=== PATIENT | female | born 1955 | race Caucasian/White ===

== ENCOUNTER → 2018-02-02 | Outpatient (CLI) | payer BC | END | disposition home or self-care (01) | LOC: LABPAT 12:44 | PROVIDERS: ATTEND Orthopaedic Surgery | DX: Z01.812 Encounter for preprocedural laboratory examination (principal); M16.12 Unilateral primary osteoarthritis, left hip | CPT/HCPCS: 87070 ==

== ENCOUNTER 2018-02-09 06:15 | Inpatient (IN) | payer BC ==
[2018-01-29 15:33] VITALS: BMI 20.7
--- NOTE | 2018-02-08 09:04 | HP ---
HISTORY AND PHYSICAL CHIEF COMPLAINT: Left hip pain. HISTORY OF PRESENT ILLNESS: The patient is a 62-year-old retired female who presents with progressive left hip pain worsening over the past year. She notes worsening pain with weightbearing activities. She has been limping. She is having a difficult time because of this. She has been taking medications with partial relief. PAST MEDICAL HISTORY: Significant for hypertension, arthritis. PAST SURGICAL HISTORY: Significant for hysterectomy and cholecystectomy. CURRENT MEDICATIONS: [place] and metoprolol. ALLERGIES: She denies drug allergies. FAMILY HISTORY: Significant for diabetes and cancer. SOCIAL HISTORY: Significant for social alcohol use. REVIEW OF SYSTEMS: Sixteen-point review of systems otherwise reviewed and is noncontributory. PHYSICAL EXAMINATION: On examination, the patient is approximately 5 feet 5 inches, 127 pounds of mesomorphic habitus. HEENT exam is nonfocal. Neck is supple. Passive motion of the left hip, flexion 90 degrees, extension full, internal rotation with the hip flexed 5 degrees with pain, external rotation 60 degrees. Clinically, she has 1 cm shortening of the left lower extremity compared to the right. She walks with a mild Trendelenburg gait. Her distal neurovascular exam appears intact in the left lower extremity. X-rays to include AP and lateral views of the left hip obtained in the office show severe left hip osteoarthrosis with coxa valga deformity. IMPRESSION: 1. Left hip severe osteoarthrosis. 2. Hypertension. RECOMMENDATIONS: I talked to the patient at length regarding her condition and treatment options. At this point, she is quite symptomatic because of pain related to her osteoarthrosis. After a thorough discussion, she opts to proceed with surgery. We will plan to proceed with left total hip arthroplasty. Risks and benefits were discussed at length in layman's terms. We will institute DVT prophylaxis postoperatively. The patient underwent preoperative medical evaluation by Dr. Can. MMODL / IJN: [id number] /
[~2018-02-09 06:15] MED LIST: ACETAMINOPHEN TAB 500 MG TAB PO ONE; DEXAMETHASONE SOD PHOSPHATE 10 MG/ML 1 ML VIAL IV ONE; MELOXICAM 7.5 MG TAB PO ONE; MIDAZOLAM 2 MG/2 ML VIAL IV PRN; ONDANSETRON 4 MG/2 ML VIAL IVP ONE; SCOPOLAMINE 1.5MG/72HR PATCH TRANSDERM ONE; TRANEXAMIC ACID 1,000 MG in SODIUM CHLORIDE 0.9% 50 ML IVPB ONE; ceFAZolin IN SWFI 2 GM/20 ML SYRINGE IVP ONE; fentaNYL (PF) 50 MCG/ML 2 ML AMP IV PRN
[2018-02-09 06:43] VITALS: RESP 16
[2018-02-09] MEDS ORDERED: LIDOCAINE 1% 20 ML VIAL (10MG/ML) FOR IV START INTRADERMA ONE (06:50)
[2018-02-09] MEDS: LACTATED RINGERS 1,000 ML IV SCH ×2 (06:59→12:18)
[2018-02-09] MEDS ORDERED: TRANEXAMIC ACID 1,000 MG/10 ML VIAL ONE (08:47)
[2018-02-09] MEDS ORDERED: SODIUM CHLORIDE 0.9% 100 ML BAG ONE (08:47)
[2018-02-09] MEDS ORDERED: fentaNYL (PF) 50 MCG/ML 2 ML AMP ONE (08:47)
[2018-02-09] MEDS ORDERED: LACTATED RINGERS 1,000 ML BAG IV ONE (08:47)
[2018-02-09] MEDS ORDERED: LIDOCAINE 1% INJ 10MG/ML (20 ML MDV) ONE (08:47)
[2018-02-09] MEDS ORDERED: PROPOFOL 10 MG/ML 20 ML VIAL IV ONE (08:47)
[2018-02-09] MEDS ORDERED: PHENYLEPHRINE-0.9% NACL SYG 1 MG/10 ML SYRINGE ONE (08:47)
[2018-02-09] MEDS ORDERED: HEPARIN SODIUM,PORCINE 10,000 UNIT/ML 1 ML VIAL ONE (08:47)
[2018-02-09] MEDS ORDERED: MIDAZOLAM 2 MG/2 ML VIAL ONE (08:47)
[2018-02-09] MEDS ORDERED: CLINDAMYCIN 1,800 MG in SODIUM CHLORIDE 0.9% IRRIGATIO 3,000 ML IRRIGATION ONE (09:24)
[2018-02-09] MEDS ORDERED: LACTATED RINGERS 1,000 ML IV ONE (10:10)
[2018-02-09] MEDS ORDERED: traMADol 50 MG TAB PO PRN (10:36)
[2018-02-09] MEDS ORDERED: MAGNESIUM HYDROXIDE 2,400 MG/10 ML CUP PO PRN (10:36)
[2018-02-09] MEDS ORDERED: MORPHINE SULFATE 4 MG/ML SYRINGE IVP PRN ×2 (10:36)
[2018-02-09] MEDS ORDERED: HYDROcodone/APAP 5-325MG 1 EACH TAB PO PRN (10:36)
[2018-02-09] MEDS ORDERED: NALOXONE 0.4 MG/ML 1 ML VIAL IV PRN (10:36)
[2018-02-09] MEDS ORDERED: ONDANSETRON 4 MG/2 ML VIAL IVP PRN (10:36)
[2018-02-09] MEDS ORDERED: MORPHINE SULFATE 4 MG/ML SYRINGE IV PRN (10:36)
--- NOTE | 2018-02-09 11:07 | P.OP ---
Date of Procedure: 02/09/18 Preoperative Diagnosis: Left hip severe osteoarthrosis Postoperative Diagnosis: Same Procedure(s) Performed: Left total hip xriwibypyijn-qkqqt-itk-anterior approach Implants: Depuy Corail size 11 collared press-fit femoral stem, 32 mm +1 ceramic femoral head, neutral polyethylene liner, 52 mm acetabular shell. Anesthesia: spinal Surgeon: Manuel Gillis Furniture Mover Helper #1: Gallito Osorio Estimated Blood Loss (ml): 150 Pathology: other (Femoral head) Condition: stable Disposition: PACU Indications for Procedure: The patient's a 62-year-old female who presents with progressive left hip pain secondary to osteoporosis despite extensive conservative measures. A discussion of the risks and benefits of operative intervention versus continued conservative measures was made with the patient. She opted to proceed with surgery. Operative risks to include infection, neurovascular injury, development of blood clots, possible component loosening, dislocation, leg length discrepancy and possible need for subsequent procedures was discussed. Informed consent was obtained. Operative Findings: As below Description of Procedure: The patient was brought to the operating room, and after induction of spinal anesthesia was placed supine on the [place] table. The left lower extremity was prepped and draped in a normal fashion. Preoperative templating was previously performed to estimate component positioning and sizes. Fluoroscopy was used to check that the pelvis was level. A 12 cm incision was then made starting 3 finger breaths posterior and distal to the ASIS. The skin and subcutaneous tissues were divided sharply. Electrocautery was used for hemostasis. The fascia was opened anterior to the posterior perforators. The interval between the tensor fascia avtar and the sartorius was bluntly developed. The posterior fascia was opened with electrocautery. The lateral circumflex vessels were identified and cauterized prior to sectioning. Retractors placed along the superior and inferior femoral neck along with the anterior acetabulum. The rectus femoris was elevated off the anterior capsule. The a wide capsulotomy was performed. The neck cut was made a proximal 1 cm above the level of the lesser trochanter at a 45 the shaft with a sagittal saw. The head was then extracted. Attention was then paid towards preparing the acetabular. Anterior and posterior retractors were placed. The remaining capsular labral tissue was debrided sharply clearly defining the acetabular margins. I began reaming with a 45 mm reamer taking care to initially medialize and then reaming at 45 of abduction and 20 of anteversion. Sequential reaming is performed up to 51 mm down to a bleeding bony surface. A 52 mm trial acetabular shell was inserted again at 45 of abduction and 20 of anteversion. This was fully seated. This was verified with fluoroscopy. There was good rim fit and stability. The trial acetabular shell was removed and the final 52 mm acetabular shell was inserted in the same orientation. Again this was fully seated. There was good rim fit and stability. I did place a superior posterior screw for additional fixation. This was 6.5 mm x 30 mm. Good purchase was obtained. A neutral polyethylene liner was gently impacted. Care was taken to avoid any soft tissue interposition. Pulsatile lavage was utilized. Attention was then paid towards preparing the proximal femur. The hip was externally rotated to 130 and then fully extended and abducted. Appropriate retractors were placed. The saddle region was cleared of soft tissue. The residual lateral neck was removed. A box chisel was used to open the metaphyseal region. A canal finder was used to find the femoral canal. Sequential broaching was performed up to a size 11 broach with the broach or lateral to the posterior cortex. There is good rotational stability. A calcar mill was used to fashion the medial calcar. A standard neck along with a 32 mm +1 trial head. The hip was gently reduced. Fluoroscopy was used to check the leg length latter-day. This was done utilizing an overlay technique. I felt I had restored the leg lengths sufficiently. The hip was externally rotated to 80 and extended 50. This was stable. I felt there was adequate latter-day of soft tissue tension. The hip was gently dislocated and the trial components removed. The size 11 collared femoral stem was inserted parallel to the posterior cortex and was fully seated. Again there was good rotational stability. A 32 mm +1 ceramic femoral head was gently impacted. The hip was gently reduced. Again it was taken to 80 of external rotation and 50 of extension with good stability. Pulsatile lavage was again utilized. The fascia was closed with running 0 Vicryl suture. The subcutaneous tissues reapproximated interrupted 2-0 Vicryl sutures. The skin was reprepped with 3-0 subcuticular strata fix suture. Skin tape and adhesive was applied. The patient was then awoken from sedation and transferred to recovery room in good condition. Blood loss was estimated at 150 mL. No complications were incurred. 2 doses of IV TXA were given. Sponge and needle counts were correct at the end the case.
--- NOTE | 2018-02-09 11:14 | XR ---
EXAMINATION TYPE: XR Hip Limited 1 view LT, FL guidance operating room DATE OF EXAM: 02/09/2018 COMPARISON: NONE HISTORY: 62 year-old female left hip arthroplasty FINDINGS: Single fluoroscopic intraoperative images showing left total arthroplasty. FLUOROSCOPY Fluoroscopy time of 49 seconds was used during left hip replacement. 1 image/s document/s the proced ure. IMPRESSION: Intraoperative fluoroscopy during left hip total arthroplasty as above.
--- NOTE | 2018-02-09 11:16 | XR ---
EXAMINATION TYPE: XR Hip Limited LT DATE OF EXAM: 02/09/2018 COMPARISON: NONE HISTORY: 62-year-old female status post left total hip arthroplasty, postoperative assessment TECHNIQUE: Single portable AP view FINDINGS: Single view shows left hip total arthroplasty in grossly anatomic alignment. Both acetabular cup and femoral stem components appear well-seated without periprosthetic fracture. Soft tissue air related t o recent operation. IMPRESSION: Uncomplicated postoperative appearance left total hip arthroplasty.
[2018-02-09] MEDS: HYDROcodone/APAP 5-325MG 1 EACH TAB PO PRN ×3 (12:20→19:39)
--- NOTE | 2018-02-09 15:12 | P.CONS ---
History of Present Illness - Reason for Consult Consult date: 02/09/18 Management of hypertension Requesting physician: Manuel Gillis - Chief Complaint Consult medical management of hypertension - History of Present Illness The patient is a 62-year-old female with a past medical history of hypertension that is admitted to the orthopedic service under Dr. Gillis And is currently postop day #0 status post having a left total hip arthroplasty anterior approach secondary to history of severe left hip osteoarthrosis. The patient is currently doing fine she reports recently returned from walking with a walker Under the guidance of physical therapy, she has no complaints. She denies any chest pain or shortness of breath, she denies any nausea or abdominal pain. The patient is requesting to have her Weiss catheter removed. Review of Systems All other 12 point review of systems negative except per HPI Past Medical History Past Medical History: Hypertension, Osteoarthritis (OA) History of Any Multi-Drug Resistant Organisms: None Reported Past Surgical History: Cholecystectomy, Hysterectomy Additional Past Surgical History / Comment(s): ANTERIOR TOTAL LEFT HIP ARTHROPLASTY 02-09-2018 Past Anesthesia/Blood Transfusion Reactions: No Reported Reaction Past Psychological History: No Psychological Hx Reported Smoking Status: Never smoker Past Alcohol Use History: Occasional Past Drug Use History: None Reported - Past Family History Sister(s) Family Medical History: Cancer Additional Family Medical History / Comment(s): BREAST Medications and Allergies Home Medications Medication Instructions Recorded Confirmed Type Metoprolol Succinate (ER) [Toprol 100 mg PO QAM 02/09/18 02/09/18 History Xl] Rivaroxaban [Xarelto] 10 mg PO DAILY #28 tab 02/09/18 Rx Allergies Allergy/AdvReac Type Severity Reaction Status Date / Time meperidine [From Demerol] Allergy Itching/DELVIS Verified 02/09/18 11:52 H Penicillins Allergy Itching/DELVIS Verified 02/09/18 11:52 H Physical Exam Vitals: Vital Signs Temp Pulse Resp BP Pulse Ox 02/09/18 11:13 70 16 131/78 97 02/09/18 11:00 75 16 126/75 97 02/09/18 10:54 97.8 F 78 16 140/83 98 02/09/18 06:42 97.8 F 80 16 159/90 99 Intake and Output 02/09/18 02/09/18 02/09/18 06:59 14:59 22:59 Intake Total 200 2651 Output Total 200 Balance 200 2451 Intake: IV 200 1001 Intake, IV Titration 150 Amount Lactated Ringers 1,000 ml 150 @ 50 mls/hr IV .Q20H [facility] Rx#:[id number] Oral 1500 Output: Urine 50 Estimated Blood Loss 150 Other: Voiding Method Indwelling Catheter Weight 56.699 kg Results CBC & Chem 7: 02/09/18 06:50 Assessment and Plan (1) Essential hypertension Current Visit: Yes Status: Acute Code(s): I10 - ESSENTIAL (PRIMARY) HYPERTENSION SNOMED Code(s): 97865469 (2) Osteoarthritis of left hip Current Visit: Yes Status: Acute Code(s): M16.12 - UNILATERAL PRIMARY OSTEOARTHRITIS, LEFT HIP SNOMED Code(s): 162728710953635 (3) S/P total hip arthroplasty Current Visit: Yes Status: Acute Code(s): Z96.649 - PRESENCE OF UNSPECIFIED ARTIFICIAL HIP JOINT SNOMED Code(s): 667535508836 Plan: The patient is doing well postop after having a left hip arthroplasty done due to severe left hip osteoarthrosis. Deferred to primary team regarding pain management, patient is already working well with physical therapy, we'll place an order to discontinue her Weiss catheter. We'll resume her Home temporarily and hypertensive therapy. The patient is continued on DVT prophylaxis on Xarelto by primary team. We'll continue to follow her clinical course
[2018-02-09] MEDS: ceFAZolin IN SWFI 2 GM/20 ML SYRINGE IVP SCH (19:39)
[2018-02-09] MEDS ORDERED: SENNOSIDES-DOCUSATE SODIUM 1 EACH TAB PO SCH (21:00)
[2018-02-10] MEDS ORDERED: ZOLPIDEM 5 MG TAB PO PRN (01:52)
[2018-02-10] MEDS: ceFAZolin IN SWFI 2 GM/20 ML SYRINGE IVP SCH (02:25)
[2018-02-10 07:53] LABS: Basophils % (A) 0 %; Eosinophils # (A) 0.1 k/uL (0-0.7); Eosinophils % (A) 1 %; HCT 33.3 % (34.0-46.0); Lymphocytes # (A) 1.4 k/uL (1.0-4.8); Lymphocytes % (A) 34 %; MCH 31.3 pg (25.0-35.0); MCV 95.1 fL (80.0-100.0); Monocytes # (A) 0.3 k/uL (0-1.0); Monocytes % (A) 8 %; Neutrophils # (A) 2.2 k/uL (1.3-7.7); Neutrophils % (A) 53 %; Platelet Count 220 k/uL (150-450); RDW 13.3 % (11.5-15.5); WBC 4.2 k/uL (3.8-10.6)
[2018-02-10 08:29] VITALS: BP 122/83; PULSE 74; TEMP 98.8
[2018-02-10] MEDS ORDERED: METOPROLOL SUCCINATE (ER) 100 MG TAB.ER.24H PO SCH (09:00)
[2018-02-10] MEDS ORDERED: RIVAROXABAN 10 MG TAB PO SCH (09:00)
[2018-02-10] MEDS: HYDROcodone/APAP 5-325MG 1 EACH TAB PO PRN (09:07)
--- NOTE | 2018-02-10 10:56 | P.PN ---
Subjective Progress Note Date: 02/10/18 Discharge of the patient was she was ambulatory in the halls with a walker doing very well with physical therapy, reports that she feels great has no complaints reports her pain is well-controlled. Had a good night of sleep, has avoided since having her Weiss removed Objective - Vital Signs Vital signs: Vital Signs Temp 98.8 F 02/10/18 08:07 Pulse 74 02/10/18 08:07 Resp 16 02/10/18 08:07 BP 122/83 02/10/18 08:07 Pulse Ox 99 02/10/18 08:07 Intake & Output 02/09/18 02/10/18 02/10/18 18:59 06:59 18:59 Intake Total 2651 1400 Output Total 1100 Balance 1551 1400 Weight 56.699 kg Intake: IV 1001 Intake, IV Titration 150 800 Amount Lactated Ringers 1,000 ml 150 800 @ 50 mls/hr IV .Q20H [facility] Rx#:[id number] Oral 1500 Other 600 Output: Urine 950 Uretheral (Weiss) 900 Estimated Blood Loss 150 Other: Voiding Method Indwelling Catheter # Voids 3 - Exam Constitutional: No acute distress, conversant, pleasant Eyes: Anicteric sclerae, moist conjunctiva, no lid-lag, PERRLA ENMT: NC/AT,Oropharynx clear, no erythema, exudates Neck:Supple, FROM, no masses, or JVD, No carotid bruits; No thyromegaly Lungs: Clear to auscultation, Clear to percussion, Normal respiratory effort, no accessory muscle use Cardiovascular: Heart regular in rate and rhythm, No murmurs, gallops, or rubs no peripheral edema Abdominal: Soft Nontender, nom distended, no guarding, no rebound or rigidity, Normoactive bowel sounds No hepatomegaly, No splenomegaly, No palpable mass No abdominal wall hernia noted Skin: Normal temperature, tone, texture, turgor, No induration No subcutaneous nodules, No rash, lesions, No ulcers Extremities:No digital cyanosis No clubbing, Pedal pulses intact and symmetrical Radial pulses intact and symmetrical Normal gait and station, No calf tenderness Psychiatric: Alert and oriented to person, place and time, Appropriate affect Intact judgement Neuro: Muscles Strength 5/5 in all 4 extremities, Sensation to light touch grossly present throughout, Cranial nerves II-XII grossly intact. No focal sensory deficits - Labs CBC & Chem 7: 02/10/18 07:08 02/09/18 06:50 Labs: Abnormal Lab Results - Last 24 Hours (Table) 02/10/18 Range/Units 07:08 RBC 3.50 L (3.80-5.40) m/uL Hgb 11.0 L D (11.4-16.0) gm/dL Hct 33.3 L (34.0-46.0) % Assessment and Plan (1) Essential hypertension Narrative/Plan: * Stable controlled on current regimen Current Visit: Yes Status: Acute Code(s): I10 - ESSENTIAL (PRIMARY) HYPERTENSION SNOMED Code(s): 61442884 (2) Osteoarthritis of left hip Current Visit: Yes Status: Acute Code(s): M16.12 - UNILATERAL PRIMARY OSTEOARTHRITIS, LEFT HIP SNOMED Code(s): 878223773915149 (3) S/P total hip arthroplasty Narrative/Plan: * Defer to primary team regarding pain management patient is doing great today * Agree with continuing Xarelto for DVT prophylaxis Current Visit: Yes Status: Acute Code(s): Z96.649 - PRESENCE OF UNSPECIFIED ARTIFICIAL HIP JOINT SNOMED Code(s): 402078290307 Plan: Patient is stable for discharge today we'll sign off, for further questions or concerns please do not hesitate to contact the sound team
--- NOTE | 2018-02-10 12:05 | P.PN ---
Subjective Progress Note Date: 02/10/18 Principal diagnosis: Status post left total hip arthroplasty Patient seen today resting in her hospital bed, she appears comfortable. She's ambulate well therapy. She is urinating on her own. She denies any headaches, lightheadedness, chest pain or shortness of breath. Objective - Vital Signs Vital signs: Vital Signs Temp 98.8 F 02/10/18 08:07 Pulse 74 02/10/18 08:07 Resp 16 02/10/18 08:07 BP 122/83 02/10/18 08:07 Pulse Ox 99 02/10/18 08:07 Intake & Output 02/09/18 02/10/18 02/10/18 18:59 06:59 18:59 Intake Total 2651 1400 Output Total 1100 Balance 1551 1400 Weight 56.699 kg Intake: IV 1001 Intake, IV Titration 150 800 Amount Lactated Ringers 1,000 ml 150 800 @ 50 mls/hr IV .Q20H [facility] Rx#:[id number] Oral 1500 Other 600 Output: Urine 950 Uretheral (Weiss) 900 Estimated Blood Loss 150 Other: Voiding Method Indwelling Catheter Toilet # Voids 3 - Exam Left lower extremity: Incision is clean, dry, and intact. The prineo tape is in good condition. There is minimal soft tissue swelling and ecchymosis surrounding the medial and lateral aspects of the incision. Calf is soft, no tenderness with palpation. Plantar flexion, dorsiflexion, EHL, FHL are intact. Sensory exam to light touch throughout the extremity is intact, dorsal pedis pulses 2+. - Labs CBC & Chem 7: 02/10/18 07:08 02/09/18 06:50 Labs: Abnormal Lab Results - Last 24 Hours (Table) 02/10/18 Range/Units 07:08 RBC 3.50 L (3.80-5.40) m/uL Hgb 11.0 L D (11.4-16.0) gm/dL Hct 33.3 L (34.0-46.0) % Assessment and Plan Plan: Assessment: 1. Postop day #1 status post left total hip arthroplasty Plan: Pain control, we'll discharge home on oral medication GI and DVT prophylaxis, will utilize Xarelto 10 mg daily for 28 days Wound care instructions discussed Icing and elevating techniques were discussed Medical recommendations Discharge planning: Patient will be discharged home today Time with Patient: Less than 30
--- NOTE | 2018-02-10 12:07 | P.DS ---
Providers Date of admission: 02/09/18 06:15 Expected date of discharge: 02/10/18 Attending physician: Manuel Gillis Consults: 02/09/18 10:40 Consult Physician Routine Consulting Provider: Carmen Rico Consult Reason/Comments: Medical Management Do you want consulting provider notified?: Yes Primary care physician: Carmen Rico [facility] Course: Date of admission: 02/09/2018 Date of discharge: 02/10/2018 Admission diagnosis: Status post left total hip arthroplasty Discharge diagnosis: Same Attending physician: Dr. Gillis Surgical procedures: Left total hip arthroplasty Brief history: Patient is a 62-year-old female with a history of with progressive primary left hip osteoarthritis. At this point patient has failed conservative treatment measures and has opted to proceed with a elective left total hip arthroplasty. Hospital course: Details of patient's surgery can be found in operative report. Patient tolerated the procedure well and was subsequently transported to orthopedic floor. Patient's orthopeidc and medical care was provided daily. Patient had daily laboratory tests performed for evaluation of overall blood counts. Patient had daily physical therapy to include strengthening range of motion as well as education with walker ambulation. Patient was treated with Xarelto for their postoperative DVT prophylaxis during their inpatient stay. Patient was noted to have a relatively uneventful postoperative course. Patient reported satisfactory pain control with oral pain medications by postoperative day 0. Patient showed satisfactory progress with physical therapy. Patient moved steadily through the program and had no difficulty meeting the goals by postoperative day 1. Given patient's otherwise satisfactory course and having met physical therapy goals, plan is to discharge patient home on postoperative day 1. Discharge condition/disposition: Patient will be discharged home in stable condition. Discharge medications: Instructions are given on resumption of patient's normal daily medications per primary care recommendation, in addition patient will be prescribed Xarelto 10 mg, Colace 100 mg, [place] 5 mg/325 mg. Discharge instructions: 1. Wound care and infection precautions, keep incision dry and covered while showering, no lotions, creams, moisturizers. No soaking, tubs, pools, hottubs. Do not scrub over the incision. 2. Weight-bear as tolerated with walker / cane until follow-up. 3. Ice and elevate when necessary. Do not exceed 20 minutes per hour with ice pack. 4. Utilize compression sleeve until seen at first follow up appointment. 5. Visiting nursing care. 6. Home physical therapy 7. Pain meds and anticoagulants per prescription. 8. Pain medication has potential to cause constipation. Increase oral fluid and fiber intake. Contact primary care provider if you have not had a bowel movement within 48 hours after discharge 9. No anti-inflammatory medication until discussed at first post operative visit, this including Motrin, Aleve, Mobic, Diclofenac 10. Follow up in office at 2 weeks postop with Sukhjinder Osorio PA-C 11. Follow up with your primary care doctor 7-10 days after discharge. 12. Contact [facility] with any questions, . Procedures: Left total hip arthroplasty Patient Condition at Discharge: Good Plan - Discharge Summary Discharge Rx Participant: Yes New Discharge Prescriptions: New Rivaroxaban [Xarelto] 10 mg PO DAILY #28 tab Docusate [Colace] 100 mg PO DAILY #30 capsule Hydrocodone/Acetaminophen [[place] 5-325] 1 - 2 each PO Q6HR PRN #40 tab PRN Reason: Pain No Action Metoprolol Succinate (ER) [Toprol Xl] 100 mg PO QAM Discharge Medication List Metoprolol Succinate (ER) [Toprol Xl] 100 mg PO QAM 02/09/18 [History] Rivaroxaban [Xarelto] 10 mg PO DAILY #28 tab 02/09/18 [Rx] Docusate [Colace] 100 mg PO DAILY #30 capsule 02/10/18 [Rx] Hydrocodone/Acetaminophen [[place] 5-325] 1 - 2 each PO Q6HR PRN #40 tab 02/10/18 [Rx] Follow up Appointment(s)/Referral(s): Carmen Rico MD [Primary Care Provider] - 03/01/18 2:45 pm Gallito Osorio PAC [[facility] [employer] [facility]] - 02/24/18 1:40 pm Activity/Diet/Wound Care/Special Instructions: Orthopedic Discharge Instructions: 1. Wound care and infection precautions, keep incision dry and covered while showering, no lotions, creams, moisturizers. No soaking, pools, hot tubs. Do not scrub over incision. 2. Weight-bear as tolerated with walker / cane until follow-up. 3. Ice and elevate when necessary. Do not exceed 20 minutes per hour with ice pack. 4. Utilize compression sleeve until seen at first follow up appointment. 5. Visiting nursing care. 6. Home physical therapy. 7. Pain meds and anticoagulants per prescription. 8. Pain medication has potential to cause constipation. Increase oral fluid and fiber intake. Contact primary care provider if you have not had a bowel movement within 48 hours after discharge. 9. No anti-inflammatory medication until discussed at first post operative visit, this including Motrin, Aleve, Mobic, Diclofenac. 10. Follow up in office at 2 weeks postop with Sukhjinder Osorio PA-C 11. Follow up with your primary care doctor 7-10 days after discharge. 12. Contact [facility] with any questions, [phone]. 13. Prescription given to patient to take to outpatient rehab. Should begin immediately. 14. [facility] - [phone] - will deliver to bedside before discharge. Discharge Disposition: HOME WITH HOME HEALTH SERVICES
== END 2018-02-10 14:40 | disposition home health service (06) | DRG 470 ==
LOC: 2ORMAIN 06:15 → 3SUR 10:55
PROVIDERS: ADMIT Orthopaedic Surgery; ATTEND Orthopaedic Surgery
PROC: 0SRB04A Replacement of Left Hip Joint with Ceramic on Polyethylene Synthetic Substitute, Uncemented, Open Approach (ICD-10-PCS; principal; 2018-02-09 08:00)
DX: M16.12 Unilateral primary osteoarthritis, left hip (principal); I10 Essential (primary) hypertension; Z79.01 Long term (current) use of anticoagulants; Z83.3 Family history of diabetes mellitus; Z90.710 Acquired absence of both cervix and uterus; Z90.49 Acquired absence of other specified parts of digestive tract; Z79.891 Long term (current) use of opiate analgesic; Z79.899 Other long term (current) drug therapy; Z88.5 Allergy status to narcotic agent; Z88.0 Allergy status to penicillin
CPT/HCPCS: 36415; 73501; 84132; 85025; 86850; 86891; 86900; 86901; 88300

== ENCOUNTER 2022-08-11 00:30 | Inpatient (IN) | payer BC ==
--- NOTE | 2022-08-11 00:39 | ED ---
Trauma HPI - General Stated Complaint: fall Time Seen by Provider: 08/11/22 00:32 Source: RN notes reviewed - History of Present Illness Initial Comments: This is a pleasant 67-year-old female who presents via transfer from [facility]. Patient was cooking dinner earlier in the day and apparently slipped on grease dislocating her left hip and fracturing her left ankle, distal fibula. Patient previously has a hip replacement of the left hip which was done about 5 years ago at this facility. Patient currently states that the pain is increasing over gave her morphine at the other facility. Denying any distal paresthesias. There was no head or neck injury. Patient is not on blood thinners. History of hypertension. Nonsmoker. No headache, no fever or chills, no changes in vision or hearing, no sore throat or difficulty with speech, no neck pain, no chest pain or shortness of breath, no abdominal pain, no nausea or vomiting, no changes in urination or bowel movements, no numbness or tingling, , no skin rashes or lesions. Apparently attempt was made at the other facility to reduce the dislocation under conscious sedation. This was unsuccessful. Past medical, surgical, social, and family history reviewed. - Related Data Home Medications Medication Instructions Recorded Confirmed Metoprolol Succinate (ER) [Toprol 100 mg PO QAM 02/09/18 02/09/18 Xl] Previous Rx's Medication Instructions Recorded Rivaroxaban [Xarelto] 10 mg PO DAILY #28 tab 02/09/18 Docusate [Colace] 100 mg PO DAILY #30 capsule 02/10/18 Hydrocodone/Acetaminophen [[place] 1 - 2 each PO Q6HR PRN #40 tab 02/10/18 5-325] Allergies Allergy/AdvReac Type Severity Reaction Status Date / Time meperidine [From Demerol] Allergy Itching/DELVIS Verified 08/11/22 00:39 H Penicillins Allergy Itching/DELVIS Verified 08/11/22 00:39 H Review of Systems ROS Statement: Those systems with pertinent positive or pertinent negative responses have been documented in the HPI. ROS Other: All systems not noted in ROS Statement are negative. Past Medical History Past Medical History: Hypertension, Osteoarthritis (OA) History of Any Multi-Drug Resistant Organisms: None Reported Past Surgical History: Cholecystectomy, Hysterectomy Additional Past Surgical History / Comment(s): ANTERIOR TOTAL LEFT HIP ARTHROPLASTY 5-22-2018 Past Anesthesia/Blood Transfusion Reactions: No Reported Reaction Past Psychological History: No Psychological Hx Reported Past Alcohol Use History: Occasional Past Drug Use History: None Reported - Past Family History Sister(s) Family Medical History: Cancer Additional Family Medical History / Comment(s): BREAST General Exam - General Exam Comments Initial Comments: Patient does not appear to be ill or toxic. Short leg OCL splint noted in the left lower extremity. Neurovascular status intact on physical examination. General appearance: in distress Head exam: Present: atraumatic, normocephalic, normal inspection Eye exam: Present: normal appearance, PERRL, EOMI. Absent: scleral icterus, conjunctival injection, periorbital swelling ENT exam: Present: normal exam, mucous membranes moist Neck exam: Present: normal inspection, full ROM. Absent: tenderness, meningismus, lymphadenopathy Respiratory exam: Present: normal lung sounds bilaterally. Absent: respiratory distress, wheezes, rales, rhonchi, stridor Cardiovascular Exam: Present: normal rhythm, tachycardia, normal heart sounds. Absent: systolic murmur, diastolic murmur, rubs, gallop, clicks GI/Abdominal exam: Present: soft, normal bowel sounds. Absent: distended, tenderness, guarding, rebound, rigid Extremities exam: Present: tenderness, normal capillary refill. Absent: pedal edema, joint swelling, calf tenderness Left Hip exam: Present: tenderness (Left hip held in flexion by the patient), dislocation, shortening. Absent: full ROM, swelling, abrasion, laceration, ecchymosis, deformity, crepitus, erythema, external rotation, internal rotation Upper Leg exam: Present: normal inspection. Absent: tenderness Knee exam: Present: normal inspection, full ROM. Absent: tenderness, swelling, abrasion, laceration Lower Leg exam: Absent: normal inspection (Short leg OCL in place. No masses status intact. Capillary refill less than 2 seconds.) Neurovascular tendon exam: Present: no vascular compromise. Absent: abnormal cap refill, sensory deficit, pallor Gait: not tested/not observed Back exam: Present: normal inspection Neurological exam: Present: alert, oriented X3, CN II-XII intact, other (Patient has no evidence of neurological deficit.). Absent: motor sensory deficit Expanded Patient oriented to: Present: person, place, time Speech: Present: fluid speech Cranial nerves: EOM's Intact: Normal, Gag Reflex: Normal Motor strength exam: RUE: 5, LUE: 5, RLE: 5, LLE: 5 Psychiatric exam: Present: normal affect, normal mood, anxious Skin exam: Present: warm, dry, intact, normal color. Absent: rash Course Vital Signs 08/11/22 08/11/22 08/11/22 00:33 01:44 01:56 Temperature Pulse Rate 133 H 133 H 101 H Pulse Rate [ Pulse Oximetery ] Respiratory 18 18 16 Rate Blood Pressure 180/112 179/109 176/100 Blood Pressure [Right Arm] O2 Sat by Pulse 96 96 96 Oximetry 08/11/22 08/11/22 02:00 03:02 Temperature 98.4 F Pulse Rate 104 H Pulse Rate [ 100 Pulse Oximetery ] Respiratory 16 12 Rate Blood Pressure 160/101 Blood Pressure 156/91 [Right Arm] O2 Sat by Pulse 96 94 L Oximetry - Consultations Consultation #1: [facility] Patient will be admitted under Dr. Goodman marr. Patient noted to be noncompliant with her medications. Patient previously was on Xarelto. Although she states she is not taking this medication nor is she taking her metoprolol. Patient admitted to daily alcohol use. Case was discussed with Dr. Oliver from [facility] will be on consult for medical management. Medical Decision Making - Medical Decision Making Patient noted to be quite tachycardic here in the ER. States she was feeling fine prior to the fall. Patient does admit to drinking 4 or 5 drinks per day every day. Patient does have a mild tremor. I wonder if the patient is having some withdrawal symptoms. Patient states that she also has been hypertensive and has not been taking her antihypertensive medication. Initial blood pressure in the range of 180/110. Patient denying any chest pain. She states that she believes she usually runs somewhat tachycardic. Patient's drug screen was negative at the other facility. Urinalysis was normal. CMP and CBC were unremarkable. Patient did have an ethanol level of 151. I'm going to repeat the laboratory investigations. Patient will be given a dose of diazepam 5 mg IV push. I did order another dose of morphine. I do note that the patient was hypertensive throughout the stay at the other facility patient also remained tachycardic. It appears that they attempted 4 or 5 times to reduce the hip with no success. Patient had imaging done at the other facility to include CT scanning of the head and neck which were negative for acute pathology The case was discussed in detail with ED attending physician. Presentation, findings, treatment plan discussed in detail. [employer] Dr. Miranda Patient admitted [facility] for trauma and left hip dislocation as well as distal fibular fracture on the left. Physician Group for Medical Management. - Lab Data Result diagrams: 08/11/22 01:52 08/11/22 01:52 - EKG Data EKG Comments: EKG done at 1:10 AM reveals atrial flutter with rapid ventricular response, normal axis, no evidence of acute ST or T-wave changes. Other intervals are normal. Normal cures pathology otherwise. No comparison study. ED attending physician as well. - Radiology Data Radiology results: report reviewed, image reviewed I did interpret all studies from the [facility]. Patient had a CT of the brain and cervical spine, left hip and pelvis plain films, and left tibia/fibula films. Patient does have a slightly displaced distal fibular fracture on plain film x-ray. Patient also had a dislocation involving the left hip prosthetic joint. CT scans of the brain several spine were without acute pathology as read by me. Concur with radiology interpretation. I did repeat the chest x-ray here which was free of any acute pathology. Agree with radiology interpretation. Disposition Clinical Impression: Dislocation of left hip, Left fibular fracture, Uncontrolled hypertension, Alcohol intoxication, Atrial flutter with rapid ventricular response Narrative: Patient admittedly does not take her blood pressure medication like she should. Patient admits to 4-5 drinks per day every day. Suspect the patient may be having some withdrawal symptoms. Disposition: ADMITTED IP TO THIS [facility] Condition: Fair Time of Disposition: 00:39 Decision to Admit Reason: Admit from EC Decision Time: 00:39
[2022-08-11] MEDS ORDERED: MORPHINE SULFATE 4 MG/ML SYRINGE IV STA (00:42)
[2022-08-11] MEDS ORDERED: ORPHENADRINE 30 MG/ML 2 ML VIAL IVP STA (00:45)
[2022-08-11] MEDS ORDERED: SODIUM CHLORIDE 0.9% 1,000 ML IV STA (00:46)
[2022-08-11] MEDS ORDERED: THIAMINE 100 MG/ML 2 ML VIAL IVP STA (00:48)
[2022-08-11] MEDS ORDERED: METOPROLOL TARTRATE 5 MG/5 ML VIAL IVP STA (01:22)
[2022-08-11] MEDS ORDERED: METOPROLOL SUCCINATE (ER) 100 MG TAB.ER.24H PO STA (01:24)
--- NOTE | 2022-08-11 01:37 | XR ---
EXAMINATION TYPE: XR chest 1V portable DATE OF EXAM: 08/11/2022 COMPARISON: NONE HISTORY: Fall. Pain TECHNIQUE: Single view FINDINGS: Heart is normal. Lungs are clear of consolidation. There are no hilar masses. There are adi st leads. Diaphragm is normal. Thoracic aorta is atheromatous. IMPRESSION: No active cardiopulmonary disease. Normal heart.
[2022-08-11] MEDS ORDERED: NALOXONE 0.4 MG/ML 1 ML VIAL IV PRN ×2 (01:40→01:41)
[2022-08-11] MEDS ORDERED: ONDANSETRON 4 MG/2 ML VIAL IVP PRN (01:40)
[2022-08-11] MEDS ORDERED: LORazepam 2 MG/ML INJ IV PRN ×3 (01:45)
[2022-08-11 02:09] LABS: ALT 26 U/L (4-34); AST 63 U/L (14-36); African American GFR (CKD) >90 (>60 ml/min/1.73 sqM); Albumin 4.2 g/dL (3.5-5.0); Alcohol <10 mg/dL; Alkaline Phosphatase 96 U/L (38-126); Anion Gap 4 mmol/L; Blood Urea Nitrogen 19 mg/dL (7-17); Calcium 8.6 mg/dL (8.4-10.2); Carbon Dioxide 23 mmol/L (22-30); Chloride 111 mmol/L (98-107); Glucose 135 mg/dL (74-99); Non-African American GFR(CKD) 79 (>60 ml/min/1.73 sqM); Potassium 4.6 mmol/L (3.5-5.1); Sodium 138 mmol/L (137-145); Total Bilirubin 0.2 mg/dL (0.2-1.3); Total Protein 6.7 g/dL (6.3-8.2)
[2022-08-11 02:11] LABS: Basophils % (A) 0 %; Eosinophils % (A) 0 %; HCT 39.5 % (34.0-46.0); HGB 13.5 gm/dL (11.4-16.0); Lymphocytes # (A) 1.1 k/uL (1.0-4.8); Lymphocytes % (A) 10 %; MCH 32.4 pg (25.0-35.0); MCHC 34.1 g/dL (31.0-37.0); Monocytes # (A) 0.6 k/uL (0-1.0); Monocytes % (A) 6 %; Neutrophils # (A) 8.8 k/uL (1.3-7.7); Neutrophils % (A) 80 %; Platelet Count 239 k/uL (150-450); RBC 4.16 m/uL (3.80-5.40); RDW 13.4 % (11.5-15.5); WBC 10.9 k/uL (3.8-10.6)
[2022-08-11 02:21] LABS: INR 0.9 (<1.2); Prothrombin Time 10.3 sec (9.0-12.0)
[2022-08-11 02:35] LABS: Partial Thromboplastin Time 19.4 sec (22.0-30.0)
--- NOTE | 2022-08-11 02:57 | P.CONS ---
History of Present Illness - Reason for Consult Consult date: 08/11/22 - History of Present Illness The patient is a 67-year-old female with a PMH of A. fib/flutter previously on Xarelto, hip replacement 5 years ago, and hypertension who presents to the emergency room as transferred from [facility] after a fall. The patient states that she was cooking dinner at around 7 PM in her kitchen when her dog walked in between her legs and she lost her balance and fell to the ground, hitting her left hip. She immediately had severe pain in her left hip and was unable to stand up. Her activated EMS who took the patient to [facility]. The patient denied head trauma or loss of consciousness. She also reports that she had drank around 4-5 drinks of vodka throughout the day. States that she has been drinking heavily 5-6 drinks of hard liquor daily for the past 2-3 years. At [facility], the patient underwent imaging which revealed a dislocation of the left hip as well as fracture involving her distal fibula and ankle all on the left side. There reportedly attempted to reduce the dislocation under conscious sedation but were unsuccessful. At time of interview, she stated that her pain was a 5 out of 10 throughout her left lower extremity. The patient states that she stopped taking all her medications roughly a year ago as she was attempting holistic treatment. She does not recall ever being on a blood thinner but the patient's record revealed previously being on Xarelto. She states that her blood pressure often runs high although she has not been checking it or taking any antihypertensives. Also reports occasional palpitations without chest discomfort or shortness of breath. The patient was noted to be in a flutter with RVR at 133 bpm Laboratory evaluation in the emergency room was remarkable for troponin of less than 0.012, WBC count 10.9, and AST 63. Review of systems: Pertinent positives and negatives as discussed in HPI, a complete review of systems was performed and all other systems are negative. Physical examination: General: non toxic, no distress, appears at stated age, normal weight Derm: no unusual rashes/lesions, warm Head: atraumatic, normocephalic, symmetric Eyes: EOMI, no lid lag, anicteric sclera, pupils equal round reactive to light ENT: Nose and ears atraumatic Neck: No cervical lymphadenopathy, trachea midline, supple Mouth: no lip lesion, mucus membranes moist Cardiovascular: Tachycardic, no murmur, positive dorsalis pedis pulse bilateral, no edema Lungs: CTA bilateral, no rhonchi, no rales, no accessory muscle use Abdominal: soft, nontender to palpation, no guarding Ext: muscle strength 5 out of 5 in all extremities except left lower extremity due to pain, no gross muscle atrophy, no contractures Neuro: CN II-XI grossly intact, no gross focal neuro deficits Psych: Alert, oriented, appropriate affect Assessment/plan A flutter with RVR -Patient given IV Lopressor as well as Toprol by mouth in the emergency room -Cardiology consulted -Cardiac monitoring -Hold off on anticoagulation at this time in anticipation of possible surgery Leukocytosis -Likely secondary to acute stressor -No signs of active infection at this time Alcohol abuse -Advised on importance of cessation -Thiamine, multivitamin -IV fluids -CIWA protocol Left hip dislocation with fibular and ankle fractures -Defer management including pain control and DVT prophylaxis to the primary surgery service We appreciate this opportunity to be involved in this patient's care. We will follow the patient with you. For any further questions, please not hesitate to contact the [facility] [place] inpatient team. Past Medical History Past Medical History: Hypertension, Osteoarthritis (OA) History of Any Multi-Drug Resistant Organisms: None Reported Past Surgical History: Cholecystectomy, Hysterectomy Additional Past Surgical History / Comment(s): ANTERIOR TOTAL LEFT HIP ARTHROPLASTY 02-09-2018 Past Anesthesia/Blood Transfusion Reactions: No Reported Reaction Past Psychological History: No Psychological Hx Reported Past Alcohol Use History: Occasional Past Drug Use History: None Reported - Past Family History Sister(s) Family Medical History: Cancer Additional Family Medical History / Comment(s): BREAST Medications and Allergies Home Medications Medication Instructions Recorded Confirmed Type Metoprolol Succinate (ER) [Toprol 100 mg PO QAM 02/09/18 02/09/18 History Xl] Rivaroxaban [Xarelto] 10 mg PO DAILY #28 tab 02/09/18 Rx Docusate [Colace] 100 mg PO DAILY #30 capsule 02/10/18 Rx Hydrocodone/Acetaminophen [[place] 1 - 2 each PO Q6HR PRN #40 tab 02/10/18 Rx 5-325] Allergies Allergy/AdvReac Type Severity Reaction Status Date / Time meperidine [From Demerol] Allergy Itching/DELVIS Verified 08/11/22 00:39 H Penicillins Allergy Itching/DELVIS Verified 08/11/22 00:39 H Physical Exam Vitals: Vital Signs Pulse Resp BP Pulse Ox 08/11/22 01:56 101 H 16 176/100 96 08/11/22 01:44 133 H 18 179/109 96 08/11/22 00:33 133 H 18 180/112 96 Intake and Output 08/10/22 08/10/22 08/11/22 14:59 22:59 06:59 Other: Weight 58.06 kg Results CBC & Chem 7: 08/11/22 01:52 08/11/22 01:52
[2022-08-11] MEDS: MORPHINE SULFATE 4 MG/ML SYRINGE IV PRN ×4 (07:04→23:01)
[2022-08-11 07:25] LABS: Appearance,Urine Clear (Clear); Bilirubin,Urine Negative (Negative); Blood,Urine Negative (Negative); Color,Urine Light Yellow; Glucose,Urine (UA) Negative (Negative); Ketones,Urine Negative (Negative); Leukocyte Esterase,Urine Trace (Negative); Nitrite,Urine Negative (Negative); Protein,Urine Negative (Negative); RBC,Urine <1 /hpf (0-5); Specific Gravity,Urine 1.017 (1.001-1.035); Urobilinogen,Urine <2.0 mg/dL (<2.0); WBC,Urine 2 /hpf (0-5)
[2022-08-11 07:55] LABS: Amphetamine Screen,Urine Not Detected (NotDetected); Barbiturate Screen,Urine Not Detected (NotDetected); Benzodiazepines Screen,Urine Not Detected (NotDetected); Cocaine Screen,Urine Not Detected (NotDetected); Methadone Screen, Urine Not Detected (NotDetected); Opiate Screen,Urine Detected (NotDetected); Oxycodone Screen, Urine Not Detected (NotDetected); Phencyclidine Screen,Urine Not Detected (NotDetected); Tricyclic Antidepressant,Urine Not Detected (NotDetected); Urn Cannabinoid Scrn Not Detected (NotDetected)
[2022-08-11] MEDS ORDERED: HYDROmorphone 0.5 MG/0.5 ML SYRINGE IVP STA (09:38)
--- NOTE | 2022-08-11 09:38 | P.PN ---
Subjective Progress Note Date: 08/11/22 Hospital course: Patient is a very pleasant 67-year-old female with a past medical history of atrial fibrillation/flutter previously on anticoagulation with Xarelto but reports that she stopped taking all of her medications approximately one year ago as she opted to go a more holistic Route for her health care, hypertension, and osteoarthritis status post previous hip replacement 5 years ago. Patient currently admitted to our hospital under orthopedic surgery team status post john ball transferred from [facility] after sustaining a mechanical fall in which she tripped over her dog resulting in left hip dislocation with left fibular and ankle fractures. We have been consulted for medical management throughout patient's hospitalization. Upon transfer to our facility patient was found to be in atrial flutter with RVR and EKG revealing sinus tachycardia at 125 bpm requiring IV administration of metoprolol to obtain rate control. CBC, coags, and CMP completed showing no significant abnormalities with the exception of mildly elevated WBC count of 10.9, chloride of 111, BUN 19, and AST of 63. Troponin was negative at less than 0.012 and TSH of 2.100. Chest x-ray completed also negative for acute cardiopulmonary process. Physical examination: Patient seen and fully evaluated at bedside this morning. Patient with persistent pain and left hip and left lower extremity. Additional order placed for 1 time dose of extra pain management and RN to notify primary admitting orthopedic surgery team to discuss further. Currently patient scheduled to undergo surgery later today at noon with Dr. Marcos. General: non toxic, no distress, appears at stated age Derm: warm, dry Head: atraumatic, normocephalic, symmetric Eyes: EOMI, no lid lag, anicteric sclera Mouth: no lip lesion, mucus membranes moist Cardiovascular: S1S2 reg, no murmur, positive posterior tibial pulse bilateral, Lungs: CTA bilateral, no rhonchi, no rales , no accessory muscle use Abdominal: soft, nontender to palpation, no guarding, no appreciable organomegaly Ext: no gross muscle atrophy, no edema, no contractures. Movement and sensation intact of lower extremities. Left lower leg and foot in orthopedic splint and elevated on pillow. Neuro: CN II-XI grossly intact, no focal neuro deficits Psych: Alert, oriented, appropriate affect Assessment and plan of care: Sinus tachycardia History of atrial flutter Hypertension -Patient given IV Lopressor as well as Toprol by mouth in the emergency room -Cardiology following started patient on valsartan 80 mg twice daily -Cardiac monitoring -Echocardiogram -Hold off on anticoagulation at this time in anticipation of possible surgery Leukocytosis -Likely secondary to acute stressor -No signs of active infection at this time Alcohol abuse -Advised on importance of cessation -Thiamine, multivitamin -IV fluids -CIWA protocol Mechanical fall Left hip dislocation with left distal fibula fracture and left ankle fractures -Management per primary admitting orthopedic surgery team including DVT prophylaxis, pain management, wound/dressing care, weightbearing, and PT/OT. -Fall precautions -Encourage incentive spirometry Thank you for allowing us to participate in the care of this pleasant patient. Do not hesitate to contact us with questions. Someone can be reached from the [facility] hospitalist group all hours of the day at [phone] or via [employer]. I reviewed the documentation as provided by the LOPEZ above, who is the original author of this note. I agree with the documented assessment and plan, with the following changes: none Objective - Vital Signs Vital signs: Vital Signs Temp 98.4 F 08/11/22 03:02 Pulse 81 08/11/22 08:00 Resp 17 08/11/22 08:00 BP 166/94 08/11/22 07:59 Pulse Ox 96 08/11/22 07:59 FiO2 Intake & Output 08/10/22 08/11/22 08/11/22 18:59 06:59 18:59 Output Total 400 Balance -400 Weight 58.06 kg Output: Urine 400 Other: Voiding Method External Catheter - Labs CBC & Chem 7: 08/11/22 01:52 08/11/22 01:52 Labs: Abnormal Lab Results - Last 24 Hours (Table) 08/11/22 08/11/22 08/11/22 Range/Units 01:52 01:52 01:52 WBC 10.9 H (3.8-10.6) k/uL Neutrophils # 8.8 H (1.3-7.7) k/uL APTT 19.4 L (22.0-30.0) sec Chloride 111 H (98-107) mmol/L BUN 19 H (7-17) mg/dL Glucose 135 H (74-99) mg/dL AST 63 H (14-36) U/L Ur Leukocyte Esterase (Negative) Urine Opiates Screen (NotDetected) 08/11/22 08/11/22 Range/Units 07:08 07:11 WBC (3.8-10.6) k/uL Neutrophils # (1.3-7.7) k/uL APTT (22.0-30.0) sec Chloride (98-107) mmol/L BUN (7-17) mg/dL Glucose (74-99) mg/dL AST (14-36) U/L Ur Leukocyte Esterase Trace H (Negative) Urine Opiates Screen Detected H (NotDetected)
--- NOTE | 2022-08-11 09:45 | P.HPOR ---
History of Present Illness H&P Date: 08/11/22 Chief Complaint: FFS with trauma History of Presenting Illness Patient is a pleasant 67-year-old female who presented to the ER after a fall from standing. Patient reports that she was standing in her kitchen moving a hot moreno of grease when her puppy got in-between her feet and she had fallen backwards. Patient states she was able to set the moreno of grease down prior to falling backward, and this results in patient having dislocated her left hip and fracturing her left distal fibula. She had a total left hip arthroplasty perf ormed by Dr. Gillis approx 5 years ago. She denies any distal paresthesias. There was no head or neck injury. Patient is not on blood thinners. Patient does report she does drink 4-5 alcoholic beverages daily. She is a non-smoker. Patient was transferred from [facility], they had attempted as well as [facility] is reduce left hip dislocation without result. Patient denies any other history of orthopedic surgery or procedures. Review of Systems Pertinent positives and negatives as discussed in HPI, a complete review of systems was performed and all other systems are negative. Physical Examination General: The patient is awake and alert, in no acute distress Skin: Skin is warm and dry with no obvious rashes or lesions. Hairy patches absent, no dorsal skin dimples, no cafe au lait spots, and no surgical incisions. Eye: Pupils are equal, round and reactive to light, extra-ocular movements are intact; there is normal conjunctiva bilaterally. Neck: The neck is supple, there is no tenderness and ROM intact. Cardiovascular: There is a regular rate and rhythm. No murmur, rub or gallop is appreciated. Respiratory: Lungs are clear to auscultation, respirations are non-labored, breath sounds are equal. Gastrointestinal: Soft, non-distended, non-tender abdomen. Left Hip: TTP over the left hip region. Musculoskeletal: ROM limited to left lower extremity secondary to pain and stiffness due to dislocation and distal fibula fracture. Neurological: CN 2-12 intact. There are no obvious motor or sensory deficits. Movement and coordination equal and intact. Sensory exam to light touch intact C5-T1 and intact from L2-S1. Reflexes 2/4 in bilateral upper and lower extremiti es. Negative Hoffmans, babinski, and clonus signs. Psychiatric: Cooperative, appropriate mood & affect, normal judgment. Assessment and Plan FFS with trauma Left hip dislocation Left distal fibula fracture -remain NPO -Closed Reduction of left hip boarded for today 08/11/22 -pain management -maintain left lower leg splint, keep CDI -continue with CIWA protocol I reviewed and discussed this case with my attending Dr. Gillis, whom has reviewed this chart and films and is in agreement with assessment and plan of care as outlined above. I have personally seen and examined the patient, performed the documentation and the assessment and plan as written. Number of minutes spent on the visit: 20m. Past Medical History Past Medical History: Hypertension, Osteoarthritis (OA) History of Any Multi-Drug Resistant Organisms: None Reported Past Surgical History: Cholecystectomy, Hysterectomy Additional Past Surgical History / Comment(s): ANTERIOR TOTAL LEFT HIP ARTHROPLASTY 02-09-2018 Past Anesthesia/Blood Transfusion Reactions: No Reported Reaction Past Psychological History: No Psychological Hx Reported Past Alcohol Use History: Occasional Past Drug Use History: None Reported - Past Family History Sister(s) Family Medical History: Cancer Additional Family Medical History / Comment(s): BREAST Medications and Allergies Home Medications Medication Instructions Recorded Confirmed Type Liver One 1 cap PO DAILY 08/11/22 08/11/22 History Lysine [l-Lysine] 600 mg PO DAILY 08/11/22 08/11/22 History Qunol Co-Q10 1 cap PO DAILY 08/11/22 08/11/22 History Theanine [l-Theanine] 200 mg PO DAILY 08/11/22 08/11/22 History Allergies Allergy/AdvReac Type Severity Reaction Status Date / Time meperidine [From Demerol] Allergy Itching/DELVIS Verified 08/11/22 00:39 H Penicillins Allergy Unknown Verified 08/11/22 08:10 Results - Labs Labs: Abnormal Lab Results - Last 24 Hours (Table) 08/11/22 08/11/22 08/11/22 Range/Units 01:52 01:52 01:52 WBC 10.9 H (3.8-10.6) k/uL Neutrophils # 8.8 H (1.3-7.7) k/uL APTT 19.4 L (22.0-30.0) sec Chloride 111 H (98-107) mmol/L BUN 19 H (7-17) mg/dL Glucose 135 H (74-99) mg/dL AST 63 H (14-36) U/L Ur Leukocyte Esterase (Negative) Urine Opiates Screen (NotDetected) 08/11/22 08/11/22 Range/Units 07:08 07:11 WBC (3.8-10.6) k/uL Neutrophils # (1.3-7.7) k/uL APTT (22.0-30.0) sec Chloride (98-107) mmol/L BUN (7-17) mg/dL Glucose (74-99) mg/dL AST (14-36) U/L Ur Leukocyte Esterase Trace H (Negative) Urine Opiates Screen Detected H (NotDetected) H & H 08/11/22 Range/Units 01:52 Hgb 13.5 (11.4-16.0) gm/dL Hct 39.5 (34.0-46.0) % Coagulation 08/11/22 Range/Units 01:52 INR 0.9 (<1.2) Result Diagrams: 08/11/22 01:52 08/11/22 01:52
--- NOTE | 2022-08-11 09:47 | XR ---
EXAMINATION TYPE: XR ankle complete LT DATE OF EXAM: 08/11/2022 COMPARISON: NONE HISTORY: Pain FINDINGS: Three views of the ankle were obtained. Overlying casting material obscures bony detail. Cannot exclu de widening of the medial margin of the ankle mortise. There is a displaced oblique fracture fibula. Small plantar calcaneal spur. Pes planus deformity seen is postsurgical change involving the first di git. Vascular calcifications noted. IMPRESSION: Displaced oblique fracture distal fibula. Cannot exclude widening of the medial compartme nt of the ankle mortise.
[2022-08-11] MEDS: VALSARTAN 80 MG TAB PO SCH ×2 (10:07→20:49)
[2022-08-11] MEDS: PANTOPRAZOLE 40 MG/10 ML VIAL IV SCH (10:07)
--- NOTE | 2022-08-11 11:01 | P.CRDCN ---
History of Present Illness History of present illness: HISTORY OF PRESENTING ILLNESS This is a pleasant 67-year-old female past medical history significant for hypertension, alcohol abuse. 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 We have been asked to see in consultation for atrial flutter. Patient presents to the emergency department transferred from [facility] after a fall. The patient states that she was cooking dinner when her dog walked in between her legs and she lost her balance and fell to the ground, hitting her left hip. She immediately had severe pain in her left hip and was unable to stand up. Her activated EMS who took the patient to [facility]. The patient denied head trauma or loss of consciousness. She did endorse palpitations. Denies any chest pain, shortness of breath, lightheadedness, dizziness, or syncope. She denies any history of Afib/Aflutter, CAD, MS, Stroke, Diabetes, dyslipidemia. She denies any tobacco or illicit drug use. She was diagnosed with hypertension, was taking metoprolol stopped taking it about a year ago and was taking supplements that she ordered on [employer] instead. She does not take her BP at home. She also reports that she had drank around 4-5 drinks of vodka throughout the day. States that she has been drinking heavily 5-6 drinks of hard liquor daily for the past 2-3 years. Family history includes mother had congestive heart failure. At [facility], the patient underwent imaging which revealed a dislocation of the left hip as well as fracture involving her distal fibula and ankle all on the left side. Transferred to [facility]. DIAGNOSTICS * EKG at [facility] revealed sinus tachycardia * EKG revealed sinus tachycardia, artifact noted in inferior leads * Telemetry tracings indicate sinus rhythm with HR 70s-80s * Chest xray no acute cardiopulmonary process * CT Brain and cervial spine at [facility]- reported no acute fracture, no acute intracranial process * Left ankle xray reported acute non-displaced fibula fracture with soft tissue swelling * Pelvis fracture reported disolation of the left hip prosthesis * Laboratory reviewed, WBC 7.9, hemoglobin 13.5, platelets 239, sodium 138, potassium 4.6, BUN 19, serum creatinine 0.7, troponin negative, TSH within normal limits * Current home medications include CoQ10, Theanine, liver 1, lysine REVIEW OF SYSTEMS At the time of my exam: CONSTITUTIONAL: Denies fever or chills. CARDIOVASCULAR: Denies chest pain, shortness of breath, orthopnea, PND or palpitations. RESPIRATORY: Denies cough. GASTROINTESTINAL: Denies abdominal pain, diarrhea, constipation, nausea or vomiting. MUSCULOSKELETAL: Denies myalgias. NEUROLOGIC: Denies numbness, tingling, headacbe or weakness. ENDOCRINE: Denies fatigue, weight change, polydipsia or polyurina. GENITOURINARY: Denies burning, hematuria or urgency with micturation. HEMATOLOGIC: Denies history of anemia or bleeding. PHYSICAL EXAMINATION Vitals 166/94, heart rate 80, afebrile, saturation 96% on room air CONSTITUTIONAL: No apparent distress. HEENT: Head is normocephalic. Pupils are equal, round. Sclerae anicteric. Mucous membranes of the mouth are moist. No JVD. No carotid bruit. CHEST EXAMINATION: Lungs are clear to auscultation. No chest wall tenderness is noted on palpation or with deep breathing. HEART EXAMINATION: Regular rate and rhythm. S1, S2 heard. No murmurs, gallops or rub. ABDOMEN: Soft, nontender. Positive bowel sounds. EXTREMITIES: 2+ peripheral pulses, no lower extremity edema and no calf tenderness. SKIN: Warm, dry NEUROLOGIC EXAMINATION: Patient is awake, alert and oriented x3. ASSESSMENT Sinus tachycardia Hypertension Status post mechanical fall Left hip dislocation Left distal tibia fracture PLAN Obtain 2D echocardiogram Start valsartan 80 mg BID Check lipid panel, Hemoglobin A1C Orthopedics following From a cardiology perspective, No absolute contraindications to undergo surgery at this time. Prior to this patient is able to perform >4 METs levels of activity and does not have any acute cardiac conditions. Nurse practitioner note has been reviewed by physician. Signing provider agrees with the documented findings, assessment, and plan of care. Past Medical History Past Medical History: Hypertension, Osteoarthritis (OA) History of Any Multi-Drug Resistant Organisms: None Reported Past Surgical History: Cholecystectomy, Hysterectomy Additional Past Surgical History / Comment(s): ANTERIOR TOTAL LEFT HIP ARTHROPLASTY 02-09-2018 Past Anesthesia/Blood Transfusion Reactions: No Reported Reaction Past Psychological History: No Psychological Hx Reported Past Alcohol Use History: Occasional Past Drug Use History: None Reported - Past Family History Sister(s) Family Medical History: Cancer Additional Family Medical History / Comment(s): BREAST Medications and Allergies Home Medications Medication Instructions Recorded Confirmed Type Liver One 1 cap PO DAILY 08/11/22 08/11/22 History Lysine [l-Lysine] 600 mg PO DAILY 08/11/22 08/11/22 History Qunol Co-Q10 1 cap PO DAILY 08/11/22 08/11/22 History Theanine [l-Theanine] 200 mg PO DAILY 08/11/22 08/11/22 History Allergies Allergy/AdvReac Type Severity Reaction Status Date / Time meperidine [From Demerol] Allergy Itching/DELVIS Verified 08/11/22 00:39 H Penicillins Allergy Unknown Verified 08/11/22 08:10 Physical Exam Vitals: Vital Signs Temp Pulse Pulse Resp BP BP Pulse Ox 08/11/22 03:02 98.4 F 100 12 156/91 94 L 08/11/22 02:00 104 H 16 160/101 96 08/11/22 01:56 101 H 16 176/100 96 08/11/22 01:44 133 H 18 179/109 96 08/11/22 00:33 133 H 18 180/112 96 Intake and Output 08/10/22 08/11/22 08/11/22 22:59 06:59 14:59 Output Total 400 Balance -400 Output: Urine 400 Other: Weight 58.06 kg Results 08/11/22 01:52 08/11/22 01:52 Cardiac Enzymes 08/11/22 08/11/22 Range/Units 01:52 01:52 AST 63 H (14-36) U/L Troponin I <0.012 (0.000-0.034) ng/mL Coagulation 08/11/22 Range/Units 01:52 PT 10.3 (9.0-12.0) sec APTT 19.4 L (22.0-30.0) sec CBC 08/11/22 Range/Units 01:52 WBC 10.9 H (3.8-10.6) k/uL RBC 4.16 (3.80-5.40) m/uL Hgb 13.5 (11.4-16.0) gm/dL Hct 39.5 (34.0-46.0) % Plt Count 239 (150-450) k/uL Comprehensive Metabolic Panel 08/11/22 Range/Units 01:52 Sodium 138 (137-145) mmol/L Potassium 4.6 (3.5-5.1) mmol/L Chloride 111 H (98-107) mmol/L Carbon Dioxide 23 (22-30) mmol/L BUN 19 H (7-17) mg/dL Creatinine 0.77 (0.52-1.04) mg/dL Glucose 135 H (74-99) mg/dL Calcium 8.6 (8.4-10.2) mg/dL AST 63 H (14-36) U/L ALT 26 (4-34) U/L Alkaline Phosphatase 96 (38-126) U/L Total Protein 6.7 (6.3-8.2) g/dL Albumin 4.2 (3.5-5.0) g/dL Current Medications Generic Name Dose Route Start Last Admin Trade Name Freq PRN Reason Stop Dose Admin Sodium Chloride 1,000 mls @ 100 mls/hr 08/11/22 00:46 08/11/22 00:55 Saline 0.9% IV 08/11/22 10:45 100 mls/hr .Q10H STA Administration Lorazepam 1 mg 08/11/22 01:45 Lorazepam 2 Mg/Ml Inj IV Q1HR PRN CIWA 10 to 15 Lorazepam 1 mg 08/11/22 01:45 08/11/22 03:32 Lorazepam 2 Mg/Ml Inj IV 1 mg Q2HR PRN Administration CIWA 8 or 9 Lorazepam 2 mg 08/11/22 01:45 Lorazepam 2 Mg/Ml Inj IV 08/13/22 01:45 Q10M PRN CIWA 16 or higher Morphine Sulfate 4 mg 08/11/22 01:40 08/11/22 07:04 Morphine Sulfate 4 Mg/Ml Syringe IV 4 mg Q4HR PRN Administration Severe Pain (Scale 7 to 10) Naloxone HCl 0.2 mg 08/11/22 01:41 Naloxone 0.4 Mg/Ml 1 Ml Vial IV Q2M PRN Opioid Reversal Naloxone HCl 0.2 mg 08/11/22 01:40 Naloxone 0.4 Mg/Ml 1 Ml Vial IV Q2M PRN Opioid Reversal Ondansetron HCl 4 mg 08/11/22 01:40 Ondansetron 4 Mg/2 Ml Vial IVP Q8HR PRN Nausea And Vomiting Pantoprazole Sodium 40 mg 08/11/22 09:00 Pantoprazole 40 Mg/10 Ml Vial IV DAILY IDRIS Thiamine HCl 100 mg 08/12/22 09:00 Thiamine 100 Mg Tab PO DAILY IDRIS Intake and Output 08/10/22 08/11/22 08/11/22 22:59 06:59 14:59 Output Total 400 Balance -400 Output: Urine 400 Other: Weight 58.06 kg 08/11/22 01:52 08/11/22 01:52
[2022-08-11] MEDS ORDERED: CYCLOBENZAPRINE 5 MG TAB PO PRN (15:36)
[2022-08-11] MEDS ORDERED: HYDROcodone/APAP 7.5-325MG 1 EACH TAB PO PRN (15:53)
--- NOTE | 2022-08-11 16:00 | P.PN ---
Progress Note - Text Progress Note Date: 08/11/22 Diagnosis: Left hip dislocation; left ankle distal fibula fracture Subjective: Patient seen at bedside this afternoon with present during encounter. Left leg is shortened and Externally Rotated. Splint is present 2 left lower extremity over left foot/ankle. Patient rates the pain in her left hip as 10/10 currently. Patient also mentions she is having pain in the left ankle at this time. Patient says that the morphine on the house for a few hours at time. Patient denies chest pain, fever, shortness breath, nausea, vomiting, changes in, hospital/bladder control. Assessment: Left hip dislocation; left ankle distal fibula fracture Plan: Left hip dislocation; left ankle distal fibula fracture - Surgery was added on for today for closed reduction of left hip closed versus open reduction and potential revision left total hip arthroplasty. Due to the add-on surgeries in front of this emergent case/staffing, surgery will be unable to be performed within the next several hours. Surgery moved to 7 am tmrw - left hip closed reduction versus open reduction and potential revision left total hip arthroplasty. regular diet now. NPO diet beginning midnight tonight. [place] and flexeril ordered for pain. Morphine as needed. NWOmi RODRIGUESE
[2022-08-11 16:19] LABS: Chol/HDL Ratio 3.19 Ratio; LDL Cholesterol,Calculated 177.9 mg/dL (0.0-131.0)
[2022-08-11] MEDS: HYDROcodone/APAP 5-325MG 1 EACH TAB PO PRN (17:51)
[2022-08-11] MEDS ORDERED: METOPROLOL TARTRATE 50 MG TAB PO SCH (21:00)
[2022-08-12] MEDS: HYDROcodone/APAP 5-325MG 1 EACH TAB PO PRN ×2 (01:00→18:15)
[2022-08-12] MEDS: MORPHINE SULFATE 4 MG/ML SYRINGE IV PRN (03:59)
[2022-08-12] MEDS ORDERED: LACTATED RINGERS 1,000 ML IV ONE (06:51)
[2022-08-12] MEDS ORDERED: DEXAMETHASONE SOD PHOSPHATE 4 MG/ML 1 ML VIAL IV ONE (07:07)
[2022-08-12] MEDS ORDERED: ONDANSETRON 4 MG/2 ML VIAL IVP ONE (07:07)
[2022-08-12] MEDS ORDERED: SUCCINYLCHOLINE CHLORIDE 200 MG/10 ML VIAL IV ONE (07:25)
[2022-08-12] MEDS ORDERED: PHENYLEPHRINE-0.9% NACL SYG 1,000 MCG/10 ML SYRINGE ONE (07:25)
[2022-08-12] MEDS ORDERED: PROPOFOL 10 MG/ML 20 ML VIAL IV ONE (07:25)
[2022-08-12] MEDS ORDERED: fentaNYL (PF) 50 MCG/ML 2 ML AMP ONE (07:25)
[2022-08-12] MEDS ORDERED: MIDAZOLAM 2 MG/2 ML VIAL ONE (07:25)
[2022-08-12] MEDS ORDERED: LIDOCAINE 2% INJ 20 MG/ML (2 ML VIAL) ONE (07:25)
--- NOTE | 2022-08-12 08:00 | P.OP ---
Date of Procedure: 08/12/22 Preoperative Diagnosis: Left hip dislocation Left lateral malleolar ankle fracture with syndesmotic disruption Postoperative Diagnosis: Same Procedure(s) Performed: Closed reduction left hip dislocation with fluoroscopy and general anesthesia Closed reduction left lateral malleolar ankle fracture with splint application Anesthesia: SHEREEN Surgeon: Manuel Gillis Estimated Blood Loss (ml): 0 Pathology: none sent Condition: stable Disposition: PACU Indications for Procedure: The patient is a 67-year-old female who underwent left total hip arthroplasty 5 years ago presents after falling dislocating her left hip. She had attempted closed reduction in an outside emergency room. A discussion of risks and benefits of closed reduction with the aid of fluoroscopy was made with the patient. She opted to proceed. She also was noted to have a displaced lateral malleolar fracture with syndesmotic disruption. I planned on closed reduction and splint application for that as well. Operative Findings: As below Description of Procedure: The patient was brought to the operating room, and after induction of general anesthesia was positioned on the [place] table. The left hip dislocation was then reduced with longitudinal traction and internal rotation. It easily went back into place. This was verified with fluoroscopy. I did check stability in both flexion and extension. Attention was then paid towards her left ankle. A bulky posterior splint with lateral stirrups was then placed. Reduction was obtained with internal rotation of the ankle. This is verified with fluoroscopy. The patient was then awoken from general anesthesia and transferred to the recovery room in good condition. Blood loss was 0. No complications were incurred.
[2022-08-12] MEDS ORDERED: NALOXONE 0.4 MG/ML 1 ML VIAL IV PRN (08:03)
--- NOTE | 2022-08-12 08:09 | XR ---
Intraoperative/procedural fluoroscopic services were provided for closed reduction left hip by Dr. Tasha hawk. Hardware appears to be intact with appropriate alignment. Total fluoroscopy time is 11 seconds w ith a total of 1 submitted image to PACS. Please see the operative note for further details.
[2022-08-12] MEDS: THIAMINE 100 MG TAB PO SCH (08:53)
[2022-08-12] MEDS: MULTIVITAMINS, THERA 1 EACH TAB PO SCH (08:53)
[2022-08-12] MEDS: ASPIRIN 325 MG TAB PO SCH (08:53)
[2022-08-12] MEDS: PANTOPRAZOLE 40 MG/10 ML VIAL IV SCH (08:53)
[2022-08-12] MEDS: VALSARTAN 80 MG TAB PO SCH ×2 (08:54→20:12)
--- NOTE | 2022-08-12 10:23 | CA ---
Transthoracic Echo Report Name: Sunita Rodriguez Age: 67 Gender: F : 1955 Exam Date: 08/12/2022 08:59 Exam Location: [place] [facility] Ht (in): 65 Wt (lb): 128 Ordering Physician: Bhavya Gregorio Attending/Referring Phys: Galley Boy Maryann Turcios, SULEMA Procedure CPT: Indications: LV function Cardiac Hx: Breast Inplants Technical Quality: Good Contrast 1: N/A Total Dose (mL): Contrast 2: Total Dose (mL): MEASUREMENTS (Male / Female) Normal Values M-MODE Aortic Root Diameter MM 3.1 cm MV E Point Septal Separation 0.7 cm AV Cusp Separation MM 1.3 cm DOPPLER AV Peak Velocity 181.0 cm/s AV Peak Gradient 13.1 mmHg MV Area PHT 3.0 cm??? Mitral E Point Velocity 40.5 cm/s Mitral A Point Velocity 83.1 cm/s Mitral E to A Ratio 0.5 MV Deceleration Time 253.1 ms MV E' Velocity 5.1 cm/s Mitral E to MV E' Ratio 7.9 TR Peak Velocity 241.1 cm/s TR Peak Gradient 23.2 mmHg Right Ventricular Systolic Press 28.2 mmHg FINDINGS Left Ventricle Normal Left ventricular size, wall thickness, systolic function with no obvious regional wall motion abnormalities. Left ventricular ejection fraction is estimated at 55%. Right Ventricle Normal right ventricular size and function. Right ventricular systolic pressure within normal limits. Right Atrium Normal right atrial size. Left Atrium Normal left atrial size. Mitral Valve Structurally normal mitral valve. Mild mitral regurgitation. Aortic Valve Trileaflet aortic valve. Tricuspid Valve Structurally normal tricuspid valve. Mild tricuspid regurgitation. Pulmonic Valve Pulmonic valve not well visualized. Pericardium Normal pericardium. Aorta Normal size aortic root and proximal ascending aorta. CONCLUSIONS Left ventricular ejection fraction 55% Mild mitral regurgitation RVSP 28 Mild tricuspid regurgitation No pericardial effusion Previewed by: Dr. Syed Becerra DO (Electronically Signed) Final Date: 12 August 2022 10:22
--- NOTE | 2022-08-12 11:44 | P.PN ---
Subjective Progress Note Date: 08/12/22 Hospital course: Patient is a very pleasant 67-year-old female with a past medical history of atrial fibrillation/flutter previously on anticoagulation with Xarelto but reports that she stopped taking all of her medications approximately one year ago as she opted to go a more holistic Route for her health care, hypertension, and osteoarthritis status post previous hip replacement 5 years ago. Patient currently admitted to our hospital under orthopedic surgery team status post john ng transferred from [facility] after sustaining a mechanical fall in which she tripped over her dog resulting in left hip dislocation with left fibular and ankle fractures. We have been consulted for medical management throughout patient's hospitalization. Upon transfer to our facility patient was found to be in atrial flutter with RVR and EKG revealing sinus tachycardia at 125 bpm requiring IV administration of metoprolol to obtain rate control. CBC, coags, and CMP completed showing no significant abnormalities with the exception of mildly elevated WBC count of 10.9, chloride of 111, BUN 19, and AST of 63. Troponin was negative at less than 0.012 and TSH of 2.100. Chest x-ray completed also negative for acute cardiopulmonary process. Physical examination: Patient seen and fully evaluated at bedside this morning. Patient is postoperative day one status post closed reduction of left hip and closed reduction of left lateral ankle fracture. Patient reports controlled postoperative pain at this time. She denies having any postoperative nausea or vomiting and denies having any other complaints or needs. General: non toxic, no distress, appears at stated age Derm: warm, dry Head: atraumatic, normocephalic, symmetric Eyes: EOMI, no lid lag, anicteric sclera Mouth: no lip lesion, mucus membranes moist Cardiovascular: S1S2 reg, no murmur, positive posterior tibial pulse bilateral, Lungs: CTA bilateral, no rhonchi, no rales , no accessory muscle use Abdominal: soft, nontender to palpation, no guarding, no appreciable organomegaly Ext: no gross muscle atrophy, no edema, no contractures. Movement and sensation intact of lower extremities/toes. Left lower leg and foot in postoperative orthopedic splint and wedge pillow remains in place lower extremities Neuro: CN II-XI grossly intact, no focal neuro deficits Psych: Alert, oriented, appropriate affect Assessment and plan of care: Sinus tachycardia History of atrial flutter Hypertension -Patient given IV Lopressor as well as Toprol by mouth in the emergency room -Cardiology following started patient on valsartan 80 mg twice daily -Cardiac monitoring -Echocardiogram revealed EF of 55% with mild mitral and tricuspid regurgitation Leukocytosis -Likely secondary to acute stressor -No signs of active infection at this time Alcohol abuse -Advised on importance of cessation -Thiamine, multivitamin -IV fluids -CIWA protocol Status post closed reduction of left hip and closed reduction of left lateral ankle fracture. Mechanical fall Left hip dislocation with left distal fibula fracture and left ankle fractures -Management per primary admitting orthopedic surgery team including DVT p rophylaxis, pain management, wound/dressing care, weightbearing, and PT/OT. -Fall precautions -Encourage incentive spirometry Thank you for allowing us to participate in the care of this pleasant patient. Do not hesitate to contact us with questions. Someone can be reached from the [facility] hospitalist group all hours of the day at [phone] or via [employer]. I reviewed the documentation as provided by the LOPEZ above, who is the original author of this note. I agree with the documented assessment and plan, with the following changes: none Objective - Vital Signs Vital signs: Vital Signs Temp 97.4 F L 08/12/22 08:03 Pulse 97 08/12/22 08:33 Resp 16 08/12/22 08:33 BP 127/76 08/12/22 08:33 Pulse Ox 100 08/12/22 08:33 FiO2 Intake & Output 08/11/22 08/12/22 08/12/22 18:59 06:59 18:59 Intake Total 100 750 Output Total 1500 Balance -1400 750 Intake: IV 100 750 Output: Urine 1500 Other: Voiding Method External Catheter External Catheter - Labs CBC & Chem 7: 08/11/22 01:52 08/11/22 01:52 Labs: Abnormal Lab Results - Last 24 Hours (Table) 08/11/22 Range/Units 01:52 Triglycerides 198.00 H (0.00-149.00) mg/dL Cholesterol 317.00 H (0.00-200.00) mg/dL LDL Cholesterol, Calc 177.9 H (0.0-131.0) mg/dL HDL Cholesterol 99.50 H (40.00-60.00) mg/dL
--- NOTE | 2022-08-12 13:01 | P.PN ---
Subjective This is a pleasant 67-year-old female past medical history significant for hypertension, alcohol abuse. 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 We have been asked to see in consultation for atrial flutter. Patient presents to the emergency department transferred from [facility] after a fall. The patient states that she was cooking dinner when her dog walked in between her legs and she lost her balance and fell to the ground, hitting her left hip. She immediately had severe pain in her left hip and was unable to stand up. Her hu sband activated EMS who took the patient to [facility]. At [facility], the patient underwent imaging which revealed a dislocation of the left hip as well as fracture involving her distal fibula and ankle all on the left side. Transferred to [facility]. There was a question about atrial fibrillation/flutter but EKGs have been reviewed and reveal sinus mechanism with artifact. No atrial flutter/fibrillation noted. 08/12/2022 Patient seen and examined at bedside, no acute distress. Denies any chest pain, palpitations or shortness of breath. She is status post closed reduction left hip dislocation and closed reduction left lateral malleolar ankle fracture by orthopedics yesterday 08/11. BP has improved. Started on Valsartan. Echocardiogram revealed EF 55%, mild mitral regurgitation, mild tricuspid regurgitation PHYSICAL EXAMINATION BP 117/74 HR 89, afebrile 94% on room air CONSTITUTIONAL: No apparent distress. HEENT: Neck Supple. No JVD. No carotid bruit. CHEST EXAMINATION: Lungs are clear to auscultation. No chest wall tenderness is noted on palpation or with deep breathing. HEART EXAMINATION: Regular rate and rhythm. S1, S2 heard. No murmurs, gallops or rub. ABDOMEN: Soft, nontender. Positive bowel sounds. EXTREMITIES: 2+ peripheral pulses, no lower extremity edema and no calf tenderness. SKIN: Warm, dry NEUROLOGIC EXAMINATION: Patient is awake, alert and oriented x3. ASSESSMENT Sinus tachycardia Hypertension Status post mechanical fall Left hip dislocation Left distal tibia fracture Status post closed reduction left hip dislocation and closed reduction left lateral malleolar ankle fracture by orthopedics yesterday 08/11. PLAN Continue valsartan 80 mg BID Orthopedics following From a cardiology perspective, No further changes at this time. Follow up with Dr. Manzano outpatient We will follow the patient as needed. Please reach out with any further questions or concerns Nurse practitioner note has been reviewed by physician. Signing provider agrees with the documented findings, assessment, and plan of care. Objective - Vital Signs Vital signs: Vital Signs Temp 97.4 F L 08/12/22 08:03 Pulse 105 H 08/12/22 08:18 Resp 16 08/12/22 08:18 BP 139/72 08/12/22 08:18 Pulse Ox 98 08/12/22 08:18 FiO2 Intake & Output 08/11/22 08/12/22 08/12/22 18:59 06:59 18:59 Intake Total 100 500 Output Total 1500 Balance -1400 500 Intake: IV 100 500 Output: Urine 1500 Other: Voiding Method External Catheter External Catheter - Labs CBC & Chem 7: 08/11/22 01:52 08/11/22 01:52 Labs: Abnormal Lab Results - Last 24 Hours (Table) 08/11/22 Range/Units 01:52 Triglycerides 198.00 H (0.00-149.00) mg/dL Cholesterol 317.00 H (0.00-200.00) mg/dL LDL Cholesterol, Calc 177.9 H (0.0-131.0) mg/dL HDL Cholesterol 99.50 H (40.00-60.00) mg/dL
[2022-08-12] MEDS ORDERED: SENNOSIDES-DOCUSATE SODIUM 1 EACH TAB PO SCH (21:00)
[2022-08-13] MEDS: HYDROcodone/APAP 5-325MG 1 EACH TAB PO PRN (04:07)
[2022-08-13] MEDS: MULTIVITAMINS, THERA 1 EACH TAB PO SCH (08:25)
[2022-08-13] MEDS: PANTOPRAZOLE 40 MG/10 ML VIAL IV SCH (08:25)
[2022-08-13] MEDS: ASPIRIN 325 MG TAB PO SCH (08:25)
[2022-08-13] MEDS: THIAMINE 100 MG TAB PO SCH (08:25)
[2022-08-13 08:26] LABS: Basophils % (A) 0 %; Eosinophils # (A) 0.2 k/uL (0-0.7); Eosinophils % (A) 2 %; HGB 12.9 gm/dL (11.4-16.0); Lymphocytes # (A) 1.7 k/uL (1.0-4.8); Lymphocytes % (A) 23 %; MCH 32.4 pg (25.0-35.0); MCHC 33.1 g/dL (31.0-37.0); MCV 97.8 fL (80.0-100.0); Mean Platelet Volume 8.3; Monocytes # (A) 0.5 k/uL (0-1.0); Monocytes % (A) 6 %; Neutrophils # (A) 4.9 k/uL (1.3-7.7); Neutrophils % (A) 65 %; Platelet Count 249 k/uL (150-450); RBC 3.98 m/uL (3.80-5.40); RDW 13.6 % (11.5-15.5); WBC 7.5 k/uL (3.8-10.6)
[2022-08-13] MEDS: VALSARTAN 80 MG TAB PO SCH (08:31)
--- NOTE | 2022-08-13 09:09 | P.PN ---
Subjective Progress Note Date: 08/13/22 Principal diagnosis: Left hip dislocation Left lateral malleolar ankle fracture with syndesmotic disruption Patient was seen at bedside this morning lying semirecumbent position with splint to left lower extremity. Patient says she is doing much better since her hip was reduced yesterday in the operating room. Patient is complaining of some pain that is localized to the left ankle at this time. Patient says she has been up out of bed several times since surgery yesterday and has just been toe- touch weightbearing to the left lower extremity. Patient says she has urinated yesterday since surgery. Patient is looking forward to going home at this time. Patient does have a walker for home. Patient denies chest pain, fever, shortness of breath, nausea, vomiting, change in vision, loss of bowel/bladder control. Objective - Vital Signs Vital signs: Vital Signs Temp 98.2 F 08/13/22 04:08 Pulse 82 08/13/22 04:08 Resp 16 08/13/22 04:08 BP 126/82 08/13/22 04:08 Pulse Ox 99 08/13/22 04:08 FiO2 Intake & Output 08/12/22 08/13/22 08/13/22 18:59 06:59 18:59 Intake Total 868 118 480 Output Total 501 Balance 367 118 480 Intake: IV 750 Oral 118 118 480 Output: Urine 501 Other: Voiding Method External Catheter External Catheter # Voids 1 - Exam Left leg equal to rgiht leg in length and is not externally rotated. There is a splint on the left lower extremity over the ankle. Patient is able to flex/extend left knee and wiggle toes and left foot. Patient does have some tenderness to palpation over left lateral malleolus. Patient is nontender to palpation throughout rest exam. Patient has full range of motion in right lower extremity and bilateral upper extremities on exam. 5/5 in all major motor groups in bilateral upper extremities and right lower extremity on exam. 4/5 in resisted left knee flexion/extension and left hip flexion/extension. Radial pulses intact, 2+ bilaterally. Cap refill under 3 seconds in digits upper and lower extremities. - Labs CBC & Chem 7: 08/13/22 07:46 08/11/22 01:52 Assessment and Plan Assessment: Left hip dislocation Left lateral malleolar ankle fracture with syndesmotic disruption - Postoperative day 1 status post closed reduction left hip dislocation and closed reduction left lateral malleolus ankle fracture with splint application Plan: 1. Left hip dislocation; Left lateral malleolar ankle fracture with syndesmotic disruption - surgery performed yesterday, 08/12/2022 - closed reduction left hip dislocation and closed reduction left lateral malleolus ankle fracture with splint application. Patient stable at bedside this morning. Patient is remain toe-touch weightbearing to the left lower extremity. Patient is to follow up with Dr. Gillis on 08/10/2022 in office. Use walker as needed at home. Discharge home today. 2. Appreciate medical management 3. Pain management - [place] 4. DVT prophylaxis - aspirin 5. GI prophylaxis - senna 6. PT/OT - toe-touch weightbearing on left lower extremity. Weight-bear as tolerated right lower extremity 7. Discharge planning - discharge home today. Time with Patient: Less than 30
--- NOTE | 2022-08-13 09:17 | P.DS ---
Providers Date of admission: 08/11/22 01:41 Expected date of discharge: 08/13/22 Attending physician: Manuel Gillis Consults: 08/11/22 02:23 Consult Physician Urgent Consulting Provider: Ralph Oliver Consult Reason/Comments: Medical Management Do you want consulting provider notified?: Already Contacted 08/11/22 03:01 Consult Physician Urgent Consulting Provider: Erickson Salazar Consult Reason/Comments: a flutter Do you want consulting provider notified?: Yes Primary care physician: Stated None Hospital Course: Date of admission: 08/11/2022 Date of discharge: 08/13/2022 Admission diagnosis: Left hip dislocation Left lateral malleolar ankle fracture with syndesmotic disruption Discharge diagnosis: Same Attending physician: Dr. Gillis Surgical procedures: closed reduction left hip dislocation and closed reduction left lateral malleolus ankle fracture with splint application Brief history: Patient is a 67-year-old female with a history of left hip dislocation in left lateral malleolar ankle fracture with syndesmotic disruption. At this point patient has failed conservative treatment measures and has opted to proceed with a elective close reduction left hip dislocation and closed reduction left lateral malleolus ankle fracture with splint application. Hospital course: Details of patient's surgery can be found in operative report. Patient tolerated the procedure well and was subsequently transported to orthopedic floor. Patient's orthopeidc and medical care was provided daily. Patient had daily laboratory tests performed for evaluation of overall blood counts. Patient had daily physical therapy to include strengthening range of motion as well as education with walker ambulation. Patient was treated with aspirin for their postoperative DVT prophylaxis during their inpatient stay. Patient was noted to have a relatively uneventful postoperative course. Patient reported satisfactory pain control with oral pain medications by postoperative day 1. Patient showed satisfactory progress with physical therapy. Patient moved steadily through the program and had no difficulty meeting the goals by postoperative day 1. Given patient's otherwise satisfactory course and having met physical therapy goals, plan is to discharge patient home on postoperative day 1. Discharge condition/disposition: Patient will be discharged home in stable condition. Discharge medications: Instructions are given on resumption of patient's normal daily medications per primary care recommendation, in addition patient will be prescribed [place] 5mg/325mg. Orthopedic Discharge Instructions: 1. Wound care and infection precautions, keep splint dry and covered while showering, no lotions, creams, moisturizers. No soaking, pools, hot tubs. Do not scrub over incision. 2. Toe touch weightbearing left lower extremity. Weight-bear as tolerated right lower extremity. use walker as needed 3. Ice and elevate when necessary. Do not exceed 20 minutes per hour with ice pack. 4. Pain meds and anticoagulants per prescription. 5. Pain medication has potential to cause constipation. Increase oral fluid and fiber intake. Contact primary care provider if you have not had a bowel movement within 48 hours after discharge. 6. No anti-inflammatory medication until discussed at first post operative visit, this including Motrin, Aleve, Mobic, Diclofenac. 7. Follow up in office next Thursday08/18/[address] Gillis 8. Follow up with your primary care doctor 7-10 days after discharge. 9. Contact [facility] with any questions, . Assessment: Left hip dislocation Left lateral malleolar ankle fracture with syndesmotic disruption Procedures: closed reduction left hip dislocation and closed reduction left lateral malleolus ankle fracture with splint application Patient Condition at Discharge: Good Plan - Discharge Summary New Discharge Prescriptions: New Docusate [Colace] 100 mg PO DAILY #30 capsule HYDROcodone/APAP 5-325MG [[place] 5-325] 1 tab PO Q6HR PRN #21 tab PRN Reason: Pain No Action Liver One 1 cap PO DAILY Theanine [l-Theanine] 200 mg PO DAILY Lysine [l-Lysine] 600 mg PO DAILY Qunol Co-Q10 1 cap PO DAILY Discharge Medication List Liver One 1 cap PO DAILY 08/11/22 [History] Lysine [l-Lysine] 600 mg PO DAILY 08/11/22 [History] Qunol Co-Q10 1 cap PO DAILY 08/11/22 [History] Theanine [l-Theanine] 200 mg PO DAILY 08/11/22 [History] Docusate [Colace] 100 mg PO DAILY #30 capsule 08/13/22 [Rx] HYDROcodone/APAP 5-325MG [[place] 5-325] 1 tab PO Q6HR PRN #21 tab 08/13/22 [Rx] Follow up Appointment(s)/Referral(s): Devin Manzano MD [STAFF PHYSICIAN] - 6 Weeks None,Stated [Primary Care Provider] - 1-2 days Manuel Gillis MD [STAFF PHYSICIAN] - 08/18/22 Patient Instructions/Handouts: Ankle Fracture (DC), Hip Dislocation (DC) Activity/Diet/Wound Care/Special Instructions: Orthopedic Discharge Instructions: 1. Wound care and infection precautions, keep splint dry and covered while showering, no lotions, creams, moisturizers. No soaking, pools, hot tubs. Do not scrub over incision. 2. Toe touch weightbearing left lower extremity. Weight-bear as tolerated right lower extremity. use walker as needed 3. Ice and elevate when necessary. Do not exceed 20 minutes per hour with ice pack. 4. Pain meds and anticoagulants per prescription. 5. Pain medication has potential to cause constipation. Increase oral fluid and fiber intake. Contact primary care provider if you have not had a bowel movement within 48 hours after discharge. 6. No anti-inflammatory medication until discussed at first post operative visit, this including Motrin, Aleve, Mobic, Diclofenac. 7. Follow up in office next Thursday08/18/[address] Gillis 8. Follow up with your primary care doctor 7-10 days after discharge. 9. Contact [facility] with any questions, . Discharge Disposition: HOME SELF-CARE
[2022-08-13 09:39] VITALS: BP 97/66; PULSE 102; RESP 18; TEMP 97.7
--- NOTE | 2022-08-13 12:47 | P.PN ---
Subjective Progress Note Date: 08/13/22 Principal diagnosis: med management Hospital Course: 67-year-old female with a past medical history of atrial fibrillation/flutter previously on anticoagulation with Xarelto but reports that she stopped taking all of her medications approximately one year ago as she opted to go a more holistic Route for her health care, hypertension, and osteoarthritis status post previous hip replacement 5 years ago. Patient currently admitted to our hospital under orthopedic surgery team status post being transferred from [facility] after sustaining a mechanical fall in which she tripped over her dog resulting in left hip dislocation with left fibular and ankle fractures. We have been consulted for medical management throughout patient's hospitalization. Upon transfer to our facility patient was found to be in atrial flutter with RVR and EKG revealing sinus tachycardia at 125 bpm requiring IV administration of metoprolol to obtain rate control. CBC, coags, and CMP completed showing no significant abnormalities with the exception of mildly elevated WBC count of 10.9, chloride of 111, BUN 19, and AST of 63. Troponin was negative at less than 0.012 and TSH of 2.100. Chest x-ray completed also negative for acute cardiopulmonary process. Cardiology consulted. Echocardiogram shows LVEF 55%. Subjective: No acute events overnight. Patient seen and examined at bedside. Denies any chest pain, shortness of breath, abdominal pain, lightheadedness, nausea, vomiting, diarrhea, or constipation, or urinary complaints. Continues to have minimal amounts of left-sided ankle pain. Denies any hip pain. Pertinent positives and negatives as discussed above, a complete review of systems was performed and all other systems are negative. Vitals Signs Reviewed. General: nontoxic, no distress, appears at stated age Derm: warm, dry Head: atraumatic, normocephalic, symmetric Eyes: EOMI, no lid lag, anicteric sclera Mouth: no lip lesion, mucus membranes moist Cardiovascular: S1S2 reg, no murmur Lungs: CTA bilateral, no rhonchi, no rales , no accessory muscle use Abdominal: soft, nontender to palpation, no guarding, no appreciable organom egaly Ext: no gross muscle atrophy, no edema, no contractures, left ankle in the cast Neuro: CN II-XI grossly intact, no focal neuro deficits Psych: Alert, oriented, appropriate affect Assessment and Plan: Sinus tachycardia History of atrial flutter Hypertension Dyslipidemia -Patient given IV Lopressor as well as Toprol by mouth in the emergency room -Cardiology following started patient on valsartan 80 mg twice daily, will reduce to 80 mg daily at discharge due to lower BP -Cardiac monitoring -Echocardiogram revealed EF of 55% with mild mitral and tricuspid regurgitation -Outpatient follow-up for dylipidemia Leukocytosis -Likely secondary to acute stressor -No signs of active infection at this time Alcohol abuse -Advised on importance of cessation -Thiamine, multivitamin -IV fluids -[facility] protocol Status post closed reduction of left hip and closed reduction of left lateral ankle fracture. Mechanical fall Left hip dislocation with left distal fibula fracture and left ankle fractures -Management per primary admitting orthopedic surgery team including DVT prophylaxis, pain management, wound/dressing care, weightbearing, and PT/OT. -Fall precautions -Encourage incentive spirometry Patient medically optimized for discharge home. Thank you for allowing us to participate in the care of this pleasant patient. Do not hesitate to contact us with questions. Someone can be reached from the [facility] hospitalist group all hours of the day at [phone] or via [employer]. Objective - Vital Signs Vital signs: Vital Signs Temp 97.7 F 08/13/22 08:20 Pulse 102 H 08/13/22 08:20 Resp 18 08/13/22 08:20 BP 97/66 08/13/22 08:20 Pulse Ox 96 08/13/22 08:20 FiO2 Intake & Output 08/12/22 08/13/22 08/13/22 18:59 06:59 18:59 Intake Total 868 118 480 Output Total 501 Balance 367 118 480 Intake: IV 750 Oral 118 118 480 Output: Urine 501 Other: Voiding Method External Catheter External Catheter Bedside Commode # Voids 1 1 - Labs CBC & Chem 7: 08/13/22 07:46 08/11/22 01:52
== END 2022-08-13 11:38 | disposition home or self-care (01) | DRG 560 ==
LOC: EC 00:30 → 3SCARD 01:41
PROVIDERS: ADMIT Orthopaedic Surgery; ATTEND Orthopaedic Surgery
PROC: 0SWSXJZ Revision of Synthetic Substitute in Left Hip Joint, Femoral Surface, External Approach (ICD-10-PCS; principal; 2022-08-12 07:30)
PROC: 0QSHXZZ Reposition Left Tibia, External Approach (ICD-10-PCS; principal; 2022-08-12 07:30)
DX: T84.021A Dislocation of internal left hip prosthesis, initial encounter (principal); I48.92 Unspecified atrial flutter; S82.62XA Displaced fracture of lateral malleolus of left fibula, initial encounter for closed fracture; E78.5 Hyperlipidemia, unspecified; D72.829 Elevated white blood cell count, unspecified; F10.129 Alcohol abuse with intoxication, unspecified; I10 Essential (primary) hypertension; S93.432A Sprain of tibiofibular ligament of left ankle, initial encounter; I48.91 Unspecified atrial fibrillation; I08.1 Rheumatic disorders of both mitral and tricuspid valves; Y90.0 Blood alcohol level of less than 20 mg/100 ml; M19.90 Unspecified osteoarthritis, unspecified site; T46.5X6A Underdosing of other antihypertensive drugs, initial encounter; T45.516A Underdosing of anticoagulants, initial encounter; Z91.128 Patient's intentional underdosing of medication regimen for other reason; Z79.899 Other long term (current) drug therapy; W01.0XXA Fall on same level from slipping, tripping and stumbling without subsequent striking against object, initial encounter; Y79.2 Prosthetic and other implants, materials and accessory orthopedic devices associated with adverse incidents; Z88.5 Allergy status to narcotic agent; Z88.0 Allergy status to penicillin
CPT/HCPCS: 36415; 71045; 73501; 80053; 80061; 80306; 80320; 81001; 83036; 84443; 84484; 85025; 85610; 85730; 86850; 86900; 86901; 93005; 93306; 96374; 96375; 99285

== ENCOUNTER 2022-08-22 06:34 | Day surgery (SDC) | payer BC ==
--- NOTE | 2022-08-21 12:31 | P.HPOR ---
History of Present Illness H&P Date: 08/21/22 Chief Complaint: Left ankle pain The patient's a 67-year-old female presents with left ankle pain after an injury on 08/11/2022. She fell injuring her ankle. She also dislocated left total hip arthroplasty. She continues to have pain and swelling in her ankle. She denies previous injury to that ankle. Review of Systems As per HPI Past Medical History Past Medical History: Hypertension, Osteoarthritis (OA) Additional Past Medical History / Comment(s): recent adm. for fall @home, dislocated left hip & fx. left ankle, in soft cast, recent EKG during hospital stay showed atrial flutter-pt. states was ruled out, told her heart rate was fast due to pain she was in from her fall, put on med. for heart rate History of Any Multi-Drug Resistant Organisms: None Reported Past Surgical History: Breast Surgery, Cholecystectomy, Hysterectomy, Orthopedic Surgery Additional Past Surgical History / Comment(s): ANTERIOR TOTAL LEFT HIP ARTHROPLASTY 02-09-2018, bunionectomy, shilo. breast implants, closed reduction left hip & left ankle 08-12-22 Past Anesthesia/Blood Transfusion Reactions: No Reported Reaction Smoking Status: Never smoker - Past Family History Sister(s) Family Medical History: Cancer Additional Family Medical History / Comment(s): BREAST Medications and Allergies Home Medications Medication Instructions Recorded Confirmed Type Docusate [Colace] 100 mg PO DAILY #30 capsule 08/13/22 08/19/22 Rx HYDROcodone/APAP 5-325MG [[place] 1 tab PO Q6HR PRN #21 tab 08/13/22 08/19/22 Rx 5-325] Multivitamins, Thera [Multivitamin 1 each PO DAILY #30 tab 08/13/22 08/19/22 Rx (formulary)] Valsartan [Diovan] 80 mg PO 2030 08/19/22 08/19/22 History LORazepam [Ativan] 1 mg PO DIRECTED PRN 08/20/22 08/20/22 History Venlafaxine HCl [Effexor XR] 150 mg PO DAILY 08/20/22 08/20/22 History Allergies Allergy/AdvReac Type Severity Reaction Status Date / Time meperidine [From Demerol] Allergy Itching/DELVIS Verified 08/19/22 15:07 H Penicillins Allergy Unknown Verified 08/19/22 15:07 Physical Examination - Ankle & Foot left Ankle appearance: swelling Effusion grade: grade 1 Foot appearance: normal Tenderness with palpation: medial ankle, lateral ankle Ankle pain worse with weight bearing: Yes Ankle pain relieved by non-weight bearing: Yes ROM: dorsiflexion: 0 degrees ROM: plantarflexion: 20 degrees Strength: dorsiflexion: 5/5 Strength: plantarflexion: 5/5 Tests: DVT tests: negative Results The patient's a well-developed well-nourished female, approximate 5 foot 5, 128 pounds of mesomorphic habits. HEENT exam is nonfocal, neck is supple. She has painless passive motion of her left hip. Straight leg raising negative. She is nontender about the left knee and proximal fibula. She has moderate left medial and lateral ankle swelling. Skin is intact. She is tender over the distal syndesmosis. Her distal neurovascular appears intact left lower extremity. - Diagnostic results Ankle/Foot x-ray: image reviewed (3 views of the left ankle obtained at the hospital show a distal fibular fracture with moderate lateral displacement. The ankle mortise appears to be disrupted with increased medial clear space.) Assessment and Plan Assessment: Left distal fibular fracturedisplaced Left ankle syndesmotic disruption Plan: I talked to the patient at length regarding her condition at this point recommend proceeding with surgical intervention. We'll plan to proceed with open reduction and internal fixation of her left distal fibular fracture with possible syndesmotic fixation. We will potentially perform that as an outpatient procedure. Risks and benefits were discussed at length in layman's terms.
[2022-08-22] MEDS ORDERED: MIDAZOLAM 2 MG/2 ML VIAL IV PRN (06:38)
[2022-08-22] MEDS ORDERED: DEXAMETHASONE SOD PHOSPHATE 4 MG/ML 1 ML VIAL IV ONE (06:38)
[2022-08-22] MEDS ORDERED: ONDANSETRON 4 MG/2 ML VIAL IVP ONE (06:38)
[2022-08-22] MEDS ORDERED: LACTATED RINGERS 1,000 ML IV SCH (06:38)
[2022-08-22] MEDS ORDERED: HYDROmorphone 0.5 MG/0.5 ML SYRINGE IVP PRN (07:00)
[2022-08-22] MEDS ORDERED: ROPIVACAINE 5 MG/ML 30 ML VIAL ONE (07:55)
[2022-08-22] MEDS ORDERED: DEXAMETHASONE SOD PHOSPHATE 4 MG/ML 1 ML VIAL ONE (07:55)
[2022-08-22] MEDS ORDERED: LIDOCAINE 2% INJ 20 MG/ML (2 ML VIAL) ONE (07:55)
[2022-08-22] MEDS ORDERED: SUCCINYLCHOLINE CHLORIDE 200 MG/10 ML VIAL IV ONE (07:55)
[2022-08-22] MEDS ORDERED: fentaNYL (PF) 50 MCG/ML 2 ML AMP ONE (07:55)
[2022-08-22] MEDS ORDERED: PROPOFOL 10 MG/ML 20 ML VIAL IV ONE (07:55)
[2022-08-22] MEDS ORDERED: HYDROmorphone (PF) 1 MG/ML ONE (07:55)
[2022-08-22] MEDS ORDERED: PHENYLEPHRINE-0.9% NACL SYG 1,000 MCG/10 ML SYRINGE ONE (07:55)
--- NOTE | 2022-08-22 07:58 | P.ANPRN ---
Procedure Note - Anesthesia - Nerve Block Performed Left Popliteal Single Time Out Performed: Yes Date of Procedure: 08/22/22 Procedure Start Time: 07:40 Procedure Stop Time: 07:50 Location of Patient: PreOp Indication: Acute Post-Operative Pain, Requested by Surgeon Sedation Type: Sedate with meaningful contact maintained Preparation: Sterile Prep, Sterile Dressing Position: Right Lateral Catheter: None Needle Types: Facet Needle Gauge: 20 Ultrasound used to visualize needle placement: Yes Ultrasound used to observe medication spread: Yes Injectate: 0.5% Ropivacaine (see comment for volume) (ropivacaine 0.5% + decadron 4 mg) Blood Aspirated: No Pain Paresthesia on Injection Noted: No Resistance on Injection: Normal Image Stored and Saved: Yes Events: Uneventful and Well Tolerated
[2022-08-22] MEDS ORDERED: ceFAZolin 1,000 MG in SODIUM CHLORIDE 0.9% 1,000 ML IRRIGATION ONE (08:33)
[2022-08-22] MEDS ORDERED: LACTATED RINGERS 1,000 ML IV ONE (08:45)
--- NOTE | 2022-08-22 09:55 | P.OP ---
Date of Procedure: 08/22/22 Preoperative Diagnosis: Left displaced lateral malleolar fracture/syndesmotic disruption left ankle Postoperative Diagnosis: Same Procedure(s) Performed: Open reduction and internal fixation left lateral malleolar ankle fracture with syndesmotic fixation Implants: Arthrex 6-hole titanium lateral plate, tight rope syndesmotic fixation device. Anesthesia: manuel REGAN Surgeon: Manuel Gillis Head Scorer #1: Kyle Fernandez Estimated Blood Loss (ml): 5 Pathology: none sent Condition: stable Disposition: PACU Indications for Procedure: The patient's a 67-year-old female presents after injuring her left ankle recently and was noted to have a displaced lateral malleolar fracture with syndesmotic disruption. A discussion of the risks and benefits of operative intervention was made with patient. She opted to proceed with surgery. Operative risks to include infection, neurovascular injury, development of blood clots, possible development of nonunion/malunion need for subsequent procedures was discussed. Informed consent was obtained. Operative Findings: As below Description of Procedure: The patient was brought to the operating room, and after induction of general anesthesia the left lower extremity was prepped and draped in normal fashion. The tourniquet was inflated to 250 mmHg. A lateral ankle incision extending approximately 8 cm was then made of the posterior lateral subcutaneous border of the fibula. The skin was incised sharply. The subcutaneous tissues were divided bluntly. The fracture site was identified and cleaned of clot and debris. This was provisionally reduced with a reduction clamp. A 6-hole precontoured lateral plate was then placed with the aid of fluoroscopy. Proximally it was attached with 3.5 mm cortical screws and 4.0 cancellus screws of the appropriate length. Distally locking 3.0 mm screws were placed again with the aid of fluoroscopy. A small fracture fragment involving the anterolateral portion of the distal fibula was fixed with a 3.0 mm cortical screw of the appropriate length. With the aid of fluoroscopy, there appeared to be persistent syndesmotic instability. The appropriate drill was then placed through the plate planning on tight rope fixation. This was angled 15 anteriorly and the ankle was put in neutral dorsiflexion. The tight rope was placed and activated. This was then tightened appropriately. Final fluoroscopic views including AP, mortise, and lateral view showed adequate fixation of the distal fibula and mormon of the ankle mortise. The wound was irrigated normal saline. The subcu tissues reapproximated interrupted 2-0 Vicryl sutures. Skin was repaired with 3-0 subcuticular Prolene suture. Steri- Strips were applied. The tourniquet was deflated less than 45 minutes total tourniquet time. A sterile dressing was applied in addition to a bulky splint. The patient was awoken from general anesthesia and transferred to recovery room in good condition. Blood loss estimated 5 mL. No complications were incurred. Sponge and needle counts were correct at the end of the case.
[2022-08-22 10:08] VITALS: TEMP 97.2
[2022-08-22 10:19] VITALS: RESP 16
--- NOTE | 2022-08-22 10:50 | XR ---
EXAMINATION TYPE: XR ankle limited LT, FL guidance operating room DATE OF EXAM: 08/22/2022 COMPARISON: NONE HISTORY: 67-year-old female S82.62XA LEFT ANKLE DISTAL FIBULAR FRACTURE FINDINGS: Intraoperative fluoroscopy during lateral plate and screw fixation of the distal fibula with syndesmo tic tight rope fixation. FLUOROSCOPY Fluoroscopy time of 56 seconds was used during internal fixation of the left ankle. 3 image/s documen t/s the procedure. IMPRESSION: Intraoperative fluoroscopy as above.
[2022-08-22 11:48] VITALS: BP 137/85; PULSE 89
== END 2022-08-22 11:52 | disposition home or self-care (01) ==
LOC: OR 06:34
PROVIDERS: ATTEND Orthopaedic Surgery
DX: S82.62XA Displaced fracture of lateral malleolus of left fibula, initial encounter for closed fracture (principal); G89.18 Other acute postprocedural pain; X58.XXXA Exposure to other specified factors, initial encounter; I10 Essential (primary) hypertension; M19.90 Unspecified osteoarthritis, unspecified site
CPT/HCPCS: 64445; 76942; 73600; 27829; C1713; J2250; J0330; J1100; J2405; J0690; J3010; J1170; J2795; J2370; J2704; J2001